=== PATIENT | female | born 1990 | race Caucasian/White ===

== ENCOUNTER 2020-08-02 09:42 | Emergency (ER) | payer SELFPAY ==
--- OUTSIDE RECORDS SUMMARY | 2020-08-02 10:27 | XMS REPORT | Continuity of Care Document ---
:1990 Author Organization [facility] t Address [address] [place] [address] Care Team Providers Name Role Phone DR SONAL Primary Care Physician MELISSA Attending Clinician Unavailable LIN JOHNSON Attending Clinician Unavailable EDITH Attending Clinician Unavailable MELISSA Attending Clinician Unavailable DR Aurea COREA Attending Clinician Unavailable Brandon PIERCE Attending Clinician Unavailable Aurea SR Attending Clinician Unavailable MELISSA Admitting Clinician Unavailable LIN JOHNSON Admitting Clinician Unavailable EDITH Admitting Clinician Unavailable STAN Admitting Clinician Unavailable Diego COREA Admitting Clinician Unavailable Jens RODRIGUEZ Admitting Clinician Unavailable Aurea SR Admitting Clinician Unavailable Problems Condition Condition Condition Status Onset Resolution Last Treating Co mments Source Name Details Category Date Date Treatment Clinician Date Dental Dental Problem Active [facility] abscess [facility]-10 [facility] 00 l (LUF/LI V/SA) Gastroesop Gastroesop Problem Active [facility] hageal hageal 8-23 [facility] - reflux reflux 00:00: Memoria disease disease 00 l (LUF/LI V/SA) Acute Acute Problem Active 2017-[address] [facility] infective infective 2-13 [facility] - bronchitis bronchitis 00:00: Me moria 00 l (LUF/LI V/SA) Palpitatio Palpitatio Problem Active [facility] ns ns 9-12 [facility] - 00:[facility]: Memoria 00 l (LUF/LI V/SA) Laceration Laceration Problem Complet [facility] - injury - injury ed 02-16 [facility] - 00:[facility]: Memoria 00 l (LUF/LI V/SA) repeat repeat Problem Active [facility] caesarean caesarean 4-23 [facility] - section, section, 00:00: Memori a bilateral bilateral 00 l tubal tubal (LUF/LI ligation ligation V/SA) 39wks 39wks Problem Active [facility] , , 4-23 Satya kes - previous previous 00:00: Memori a c/sx 2 , c/sx 2 , 00 l undesired undesired (LUF /LI fertility fertility V/SA ) 38 wks 38 wks Problem Active [facility] , , 4-18 Satya kes - uterine uterine 00:00: Memoria contractio contractio 00 l ns, ns, (LUF/LI previous previous V/SA) caesarean caesarean section section Otitis Otitis Problem Active [facility] externa externa 2-09 [facility] - 00:[facility]: Memoria 00 l (LUF/LI V/SA) Otitis Otitis Problem Active [facility] media media 2-09 [facility] - 00:00: Memoria 00 l (LUF/LI V/SA) 25 weeks 25 weeks Problem Active [facility] , 1- Luke [facility] - febrile febrile 00:00: Memoria illness,le illness,le 00 l ucocytosis ucocytosis (L UF/LI V/SA) Influenza Influenza Problem Active 2016-[address] [facility] [address] 2-02 [facility] - 00:00: Memoria 00 l (LUF/LI V/SA) Problem Active 2016-[address] [facility] 0-06 [facility] - 00:00: Memoria 00 l (LUF/LI V/SA) Syncope Syncope Problem Active 2016-[address] [facility] [address] 0-06 [facility] - 00:00: Memoria 00 l (LUF/LI V/SA) Laceration Laceration Problem Active [facility] - injury - injury 6-07 [facility] - 00:[facility]: Memoria 00 l (LUF/LI V/SA) Streptococ Streptococ Problem Active [facility] lavinia sore lavinia sore 2-20 [facility] - throat throat 00:00: Memoria 00 l (LUF/LI V/SA) 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 [facility] Hepatitis Hepatitis Problem Active [facility] C antibody C antibody Satya kes - positive positive Memori a in blood in blood l [facility] Screening, Screening, Problem Active [facility] , , Satya kes - for for Daniel silvino anatomic anatomic l survey survey [facility] Previous Previous Problem [facility] complicati complicati l ng ng [facility] , , en t antepartum antepartum Cl inics condition condition or or complicati complicati on on Infection Infection Problem Active [facility] of left of left [facility] - ear ear 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 Other iron Other iron Problem Active [facility] deficiency deficiency Satya kes - anemia anemia [facility] 27 weeks 27 weeks Problem Active [facility] gestation gestation Luke s - of of Memoria l [facility] 20 weeks 20 weeks Problem Active [facility] gestation gestation Luke [facility] - of of Memoria l [facility] Negative Negative Problem Active [facility] Complete Complete [facility] Active [facility] spontaneou spontaneou Satya kes - s s Me moria 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 Memori a l (LUF/LI V/SA) Atrial Atrial Problem Active [facility] septal septal [facility] - defect defect Memoria l (LUF/LI V/SA) Back Back Problem Active [facility] problem problem [facility] - Memoria l (LUF/LI V/SA) Congenital Congenital Problem Active [facility] heart heart [facility] - disease disease Memoria l (LUF/LI V/SA) Asthma Asthma Problem Active [facility] - Memoria l (LUF/LI V/SA) Bronchitis Bronchitis Problem Active [facility] - Memoria l (LUF/LI V/SA) Disorder Disorder Problem Active [facility] of the of the [facility] - peripheral peripheral Me moria nervous nervous l system system (LUF/LI V/SA) Allergies, Adverse Reactions, Alerts Allergy Allergy Status Severity Reaction(s) Onset Inactive Treating Comm ents Source Name Type Date Date Clinician vancomyc Adverse Active rash [facility] in Reaction [facility] Medications Ordered Filled Start Stop Current Ordering Indication Dosage Frequency Signature Comments Components Source Medication Medication Date Date Medication? Clinician (SIG) Name Name Neomycin-Po Neomycin-Po Yes Caron [address] [address] lymyxin-HC lymyxin-HC 1-31 Garnepudi into [facility] - 00:00: affected [facility]oria 00 ear l [facility] Select-OB Select-OB 2016-09 Yes Caron [address] [facility] 2-15 Garnepudi [facility] - 00:00: Memoria 00 l [facility] Multi Multi Yes Caron [address] [facility] Vitamin Vitamin Garnepudi Luke [facility] - [facility]oria l [facility] Tylenol # 3 Tylenol # 3 Yes Caron not [facility] Garnepudi defined [facility] Benzocaine Benzocaine Yes 15mL 4xD to [facility] 100 MG/ML 100 MG/ML affected L ukes - Mucous Mucous mucosal Memoria Membrane Membrane area 4 l Topical Topical times per (LUF /LI Solution Solution day as V/SA) needed. (as needed for mouth pain; swish and spit) Clindamycin Clindamycin Yes 450mg 3xD orally [address] [facility] Oral Oral times per [facility] - day (For 3 Memoria days) l (LUF/LI V/SA) Immunizations Ordered Immunization Filled Immunization Date Status Commen ts Source Name Name measles, mumps and measles, mumps and 2018-01-[address] [facility] - rubella virus rubella virus 11:54:00 [facility] vaccine vaccine (LUF/DAVE/SA) diphtheria, tetanus diphtheria, tetanus 2018-01-12 Completed [facility] - toxoids and toxoids and 17:19:01 [facility] acellular pertussis acellular pertussis (LUF/DAVE/SA) vaccine vaccine influenza virus influenza virus 2013-09-24 Completed [facility] - vaccine, NOS vaccine, NOS 08:51:21 [facility] (LUF/DAVE/SA) diphtheria, tetanus diphtheria, tetanus 2013-09-23 Completed [facility] - toxoids and toxoids and 16:50:57 [facility] acellular pertussis acellular pertussis (F/DAVE/SA) vaccine vaccine Vital Signs Vital Name Observation Time Observation Value Comments Source Body Temperature 2020-06-10 08:55:00 97.3 [degF] [facility] (F/DAVE/SA) Pulse Rate 2020-06-10 08:55:00 78 /min [facility] (LUF/DAVE/SA) Respiratory Rate 2020-06-10 08:55:00 18 /min [facility] (F/DAVE/SA) O2% BldC Oximetry 2020-06-10 08:55:00 99 % [facility] (F/DAVE/SA) BP Systolic 2020-06-10 08:55:00 119 mm[Hg] [facility] (F/DAVE/SA) BP Diastolic 2020-06-10 08:55:00 82 mm[Hg] [facility] (F/DAVE/SA) Height 2020-06-10 08:34:00 60 [in_i] [facility] (F/DAVE/SA) Weight 2020-06-10 08:34:00 110 [lb_av] [facility] (F/DAVE/SA) BMI (Body Mass Index) 2020-06-10 08:34:00 21.5 kg/m2 [facility] (F/DAVE/SA) Body Temperature 2018-11-24 14:37:00 98 F [facility] (LUF/DAVE/SA) Pulse Rate 2018-11-24 14:37:00 96 /min [facility] (F/DAVE/SA) Respiratory Rate 2018-11-24 14:37:00 18 /min [facility] (LUF/DAVE/SA) O2% BldC Oximetry 2018-11-24 14:37:00 99 % [facility] (LUF/DAVE/SA) BP Systolic 2018-11-24 14:37:00 146 mm[Hg] [facility] (LUF/DAVE/SA) BP Diastolic 2018-11-24 14:37:00 96 mm[Hg] [facility] (LUF/DAVE/SA) Height 2018-11-24 14:37:00 59 in [facility] (LUF/DAVE/SA) Weight Measured 2018-11-24 14:37:00 103.61 lbs [facility] (LUF/DAVE/SA) BMI (Body Mass Index) 2018-11-24 14:37:00 21.1 kg/m2 [facility] (LUF/DAVE/SA) Body Temperature 2018-11-23 17:52:00 98.9 F [facility] (LUF/DAVE/SA) Pulse Rate 2018-11-23 17:52:00 78 /min [facility] (LUF/DAVE/SA) Respiratory Rate 2018-11-23 17:52:00 20 /min [facility] (LUF/DAVE/SA) O2% BldC Oximetry 2018-11-23 17:52:00 99 % [facility] (LUF/DAVE/SA) BP Systolic 2018-11-23 17:52:00 156 mm[Hg] [facility] (LUF/DAVE/SA) BP Diastolic 2018-11-23 17:52:00 87 mm[Hg] [facility] (LUF/DAVE/SA) Height 2018-11-23 17:52:00 59 in [facility] (LUF/DAVE/SA) Weight Measured 2018-11-23 17:52:00 101.41 lbs [facility] Sandy [facility] (LUF/DAVE/SA) BMI (Body Mass Index) 2018-11-23 17:52:00 20.7 kg/m2 [facility] (LUF/DAVE/SA) Body Temperature 2018-09-03 16:26:00 99.4 F [facility] (LUF/DAVE/SA) Pulse Rate 2018-09-03 16:26:00 85 /min [facility] (LUF/DAVE/SA) Respiratory Rate 2018-09-03 16:26:00 18 /min [facility] (LUF/DAVE/SA) O2% BldC Oximetry 2018-09-03 16:26:00 98 % [facility] (LUF/DAVE/SA) BP Systolic 2018-09-03 16:26:00 109 mm[Hg] [facility] (LUF/DAVE/SA) BP Diastolic 2018-09-03 16:26:00 64 mm[Hg] [facility] (LUF/DAVE/SA) Height 2018-09-03 16:26:00 60 in [facility] (LUF/DAVE/SA) Weight Measured 2018-09-03 16:26:00 119.99 lbs [facility] (LUF/DAVE/SA) BMI (Body Mass Index) 2018-09-03 16:26:00 23.5 kg/m2 [facility] (LUF/DAVE/SA) Respiratory Rate 2018-06-03 02:32:00 18 /min [facility] (LUF/DAVE/SA) O2% BldC Oximetry 2018-06-03 02:32:00 99 % [facility] (LUF/DAVE/SA) BP Systolic 2018-06-03 02:32:00 160 mm[Hg] [facility] (LUF/DAVE/SA) BP Diastolic 2018-06-03 02:32:00 97 mm[Hg] [facility] (LUF/DAVE/SA) Height 2018-06-03 02:29:00 60 in [facility] (LUF/DAVE/SA) Weight Measured 2018-06-03 02:29:00 110.23 lbs [facility] (LUF/DAVE/SA) BMI (Body Mass Index) 2018-06-03 02:29:00 21.6 [facility] (LUF/DAVE/SA) Respiratory Rate 2018-01-16 08:30:00 19 /min [facility] (LUF/DAVE/SA) O2% BldC Oximetry 2018-01-16 08:30:00 97 % [facility] (LUF/DAVE/SA) Body Temperature 2018-01-16 08:15:00 98 F [facility] (LUF/DAVE/SA) BP Systolic 2018-01-16 08:15:00 122 mm[Hg] [facility] (LUF/DAVE/SA) BP Diastolic 2018-01-16 08:15:00 70 mm[Hg] [facility] (LUF/DAVE/SA) Height 2018-01-12 10:07:00 60 in [facility] (LUF/DAVE/SA) Weight Measured 2018-01-12 10:07:00 130.27 lbs [facility] (LUF/DAVE/SA) BMI (Body Mass Index) 2018-01-12 10:07:00 25.5 [facility] (LUF/DAVE/SA) Body Temperature 2018-01-08 08:49:00 97.8 F [facility] (LUF/DAVE/SA) Respiratory Rate 2018-01-08 08:49:00 16 /min [facility] (LUF/DAVE/SA) BP Systolic 2018-01-08 08:49:00 113 mm[Hg] [facility] (LUF/DAVE/SA) BP Diastolic 2018-01-08 08:49:00 65 mm[Hg] [facility] (LUF/DAVE/SA) Height 2018-01-07 18:52:00 60 in [facility] (LUF/DAVE/SA) Weight Measured 2018-01-07 18:52:00 124.78 lbs BELINDA [facility] (LUF/DAVE/SA) BMI (Body Mass Index) 2018-01-07 18:52:00 24.4 [facility] (LUF/DAVE/SA) Body Temperature 2017-12-24 23:36:00 98 F [facility] (LUF/DAVE/SA) Respiratory Rate 2017-12-24 23:36:00 20 /min [facility] (LUF/DAVE/SA) O2% BldC Oximetry 2017-12-24 23:36:00 99 % [facility] (LUF/DAVE/SA) BP Systolic 2017-12-24 23:36:00 145 mm[Hg] [facility] (LUF/DAVE/SA) BP Diastolic 2017-12-24 23:36:00 62 mm[Hg] [facility] (LUF/DAVE/SA) Height 2017-12-24 23:36:00 60 in [facility] (LUF/DAVE/SA) Weight Measured 2017-12-24 23:36:00 125 lbs [facility] (LUF/DAVE/SA) BMI (Body Mass Index) 2017-12-24 23:36:00 24.5 [facility] (LUF/DAVE/SA) Body Temperature 2017-10-31 00:14:00 99.4 F [facility] (LUF/DAVE/SA) Respiratory Rate 2017-10-31 00:14:00 22 /min [facility] (LUF/DAVE/SA) Height 2017-10-31 00:14:00 60 in [facility] (LUF/DAVE/SA) Weight Measured 2017-10-31 00:14:00 120 lbs [facility] (LUF/DAVE/SA) BMI (Body Mass Index) 2017-10-31 00:14:00 23.5 [facility] (LUF/DAVE/SA) O2% BldC Oximetry 2017-10-31 00:07:00 98 % [facility] (LUF/DAVE/SA) BP Systolic 2017-10-31 00:06:00 132 mm[Hg] [facility] (LUF/DAVE/SA) BP Diastolic 2017-10-31 00:06:00 66 mm[Hg] [facility] (LUF/DAVE/SA) Body Temperature 2017-10-16 10:00:00 98.1 F [facility] (LUF/DAVE/SA) Respiratory Rate 2017-10-16 10:00:00 18 /min [facility] (LUF/DAVE/SA) O2% BldC Oximetry 2017-10-16 10:00:00 98 % [facility] (LUF/DAVE/SA) BP Systolic 2017-10-16 10:00:00 100 mm[Hg] [facility] (LUF/DAVE/SA) BP Diastolic 2017-10-16 10:00:00 53 mm[Hg] [facility] (LUF/DAVE/SA) Height 2017-10-15 19:35:00 60 in [facility] (LUF/DAVE/SA) Weight Measured 2017-10-15 19:35:00 118.16 lbs [facility] (LUF/DAVE/SA) BMI (Body Mass Index) 2017-10-15 19:35:00 23.1 [facility] (LUF/DAVE/SA) Body Temperature 2017-08-23 15:56:00 98 F [facility] (LUF/DAVE/SA) Respiratory Rate 2017-08-23 15:56:00 17 /min [facility] (LUF/DAVE/SA) O2% BldC Oximetry 2017-08-23 15:56:00 100 % [facility] (LUF/DAVE/SA) BP Systolic 2017-08-23 15:56:00 120 mm[Hg] [facility] (LUF/DAVE/SA) BP Diastolic 2017-08-23 15:56:00 66 mm[Hg] [facility] (LUF/DAVE/SA) Height 2017-08-23 15:56:00 60 in [facility] (LUF/DAVE/SA) Weight Measured 2017-08-23 15:56:00 109.98 lbs [facility] (LUF/DAVE/SA) BMI (Body Mass Index) 2017-08-23 15:56:00 21.5 [facility] (LUF/DAVE/SA) Procedures Procedure Date / Time Performed Performing Clinician Rocio HARRINGTON RED BLD CLL 2018-01-13 00:00:00 BELINDA Keith PERIPH VN PC [facility] (LUF/DAVE/SA) EXCISION BILAT 2018-01-12 00:00:00 [facility] T[facility] (LUF/DAVE/SA) EXTRACTION POC LOW 2018-01-12 00:00:00 [facility] - CERVICAL OPEN [facility] (LUF/DAVE/SA) PULMONARY VALVE [facility] REPLACEMENT [facility] (LUF/DAVE/SA) [facility] (LUF/DAVE/SA) LEFT NECK ABSCESS I &D [facility] (LUF/DAVE/SA) Encounters Start End Encounter Admission Attending Care Care Encounter Source Date/Time Date/Time Type Type Clinicians Facility Department ID 2020-07-24 2020-07-24 Inpatient [facility] [id number] 11:03:00 23:59:00 MITCHEL Henderson ukes - N, [address], ([place] [address] 2020-06-10 2020-06-10 PERIAPICAL [facility] [id number] 08:18:00 09:04:00 ABSCESS MITCHEL Henderson ukes - WITHOUT N, [address], ([place]F/[place] [address] 2018-11-24 2018-11-24 AGGRESS TORRES, GIMENEZ [facility] [id number] 14:33:00 14:50:00 PERIODONTI MITCHEL MODI [facility] - TIS LOCAL N, [address], ([place] [address] 2018-11-23 2018-11-23 JAW PAIN LAUREN ARCINIEGA [facility] [id number] 17:39:00 20:00:00 MITCHEL MODI L ukes - N, [address], (LUF/[place] [address] 2018-09-03 2018-09-03 ACUTE 1 STAN, [facility] [id number] [facility] 16:04:00 17:54:00 BRONCHITIS KELLY MITCHEL Keith - UNSPECIFIE N, [address], ([place] [address] 2018-06-03 2018-06-03 LAUREN GOMEZ [facility] [id number] 02:14:00 02:52:00 NS MITCHEL Henderson ukes - N, [address], (LUF/[place] [address] 2018-02-02 2018-02-02 Outpatient [facility] [id number] 14:00:00 14:00:00 Clinics [facility] oria n [facility] 2018-01-12 2018-01-16 MAT CARE O NAHOMY, [facility] [id number] 09:14:00 14:15:00 UNS TYPE CARON GRULLON [facility] - SCAR PREV N, [address], ([place] [address] 2018-01-12 2018-01-12 Inpatient [facility] [place] [id number] 08:23:00 23:59:00 CARON Villar [facility], [address] (LUF/[address], V/SA) [place] [address] 2018-01-07 2018-01-08 [facility] [id number] 17:54:00 09:25:00 LABOR CARON Henderson ukes - AT/AFTR 37 N, [address], ([place] [address] 2018-01-07 2018-01-07 Outpatient [facility] [id number] 14:00:00 14:00:00 Clinics [facility] oria n [facility] Out dioni [facility] ent [facility] 2018-01-06 2018-01-06 [facility] [id number] 10:59:00 23:59:00 OTH PA FTL [facility] N, [address], ([place] [address] 2017-12-30 2017-12-30 Outpatient [facility] [id number] 14:00:00 14:00:00 Clinics Clinics [facility] oria n [facility] 2017-12-24 2017-12-25 PROC&TX FRANCISCO CHATMAN [facility] [id number] 23:21:00 02:00:00 NOT MITCHEL Henderson ukes - CARRIED N, [address] [place], ([place] [address] 2017-12-23 2017-12-23 Outpatient [facility] [id number] 14:00:00 14:00:00 Clinics [facility] oria n [facility] Out dioni [facility] ent Center [facility] 2017-10-30 2017-10-31 OTH DZ Willow STALLWORTH, [facility] [id number] 23:58:00 10:54:00 COMP PREG BHAVESH MODI [facility] N, [address], ([place] [address] 2017-10-14 2017-10-16 OTH DZ O NAHOMY, [facility] [id number] 18:21:00 13:15:00 COMP PREG CARON MODI [facility] N, [address], ([place] [address] 2017-09-08 2017-09-08 ENCTR OTH 3 NAHOMY [facility] [id number] 13:41:00 23:59:00 SPEC CARON MODI L ukes - N, [address], ([place] [address] 2017-08-23 2017-08-23 OTH VIRAL JANIE, SULMA [facility] [id number] 15:47:00 17:00:00 DZ COMP [place]IV[place] MODI L ukes - PREG N, [address] [facility] [address], ([place]F/[place] [address] Results Test Description Test Time Test Comments Results Result Sourc e Comments XR CHEST 2 PA 2019-09-24 PA and lateral LATERAL 12:06:29 chest:History: Productive coughCompared to 05/14/19. The lungs are clear. The cardiomediastinal silhouette iswithin normal limits. 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 There are nosignificant bony abnormalities.Impressio n: No active cardiopulmonary disease.This final report was electronically signed by Dr Power Martino MD 09/24/201912:00 PMDictated By: POWER MARTINODate: 09/24/2019 12:00 FLU SCREEN 2019-09-24 11:32:00 Test Item Value Reference Range Interpretation Comme nts Flu A Screen (test code = Negative Negative N EF FECTIVE 09/10/2013 - A method FLUA) change has occu rred. A molecular method for Flu testing will replace the current met hod. Both Flu A and Flu B will be t ested and results will continue t o be listed as "Negative or Po sitive". While this method is more specific in the detection of obdulio th strains, confirmatory te sting is available upon request. ldh Flu B Screen (test code = Negative Negative N EF FECTIVE 09/10/2013 - A method FLUB) change has occu rred. A molecular method for Flu testing will replace the current met hod. Both Flu A and Flu B will be t ested and results will continue t o be listed as "Negative or Po sitive". While this method is more specific in the detection of obdulio th strains, confirmatory te sting is available upon request. ldh URINALYSIS WITH [id number] 11:31:00 Test Item Value Reference Range Interpretation Comments Color (test code = Lt. Yellow UCOLR) Clarity (test code = Clear UCLAR) Glucose (test code = NEGATIVE NEGATIVE N UGLUC) Bilirubin (test code = NEGATIVE NEGATIVE N UBILI) Ketones (test code = NEGATIVE NEGATIVE N UKET) Specific [place] (test 1.020 1.005-1.030 A code = USPGR) Blood (test code = UBLD) NEGATIVE NEGATIVE N PH (test code = UPH) 7.0 4.5-8.0 A Protein (test code = NEGATIVE NEGATIVE N UPROT) Urobilinogen (test code 0.2 >0.2 N = U UROB) Nitrite (test code = NEGATIVE NEGATIVE N UNITR) Leukocyte Esterase (test NEGATIVE NEGATIVE N code = ULEUK) WBC (test code = WBCUR) 0-3 0-1 0-5 A RBC (test code = RBCUR) 0-1 0-5 A Epithial Cells (test 5-10 0-10 A code = U EPI) Mucous (test code = Trace None Seen A UMUC) Bacteria (test code = Trace None Seen,Trace N UBACT) Crystals Urine (test Trace Amorphous None Seen A code = URCRYS) Sediment TEST, Urine [id number] 11:27:00 Test Item Value Reference Range Interpretation Comments (Urine) (test code = Negative PREGU) XR FOREARM 2 [id number] 17:42:26Procedure: 2 view left forearmOrder Date: 06/07/2019 4:55 PMOrdering Provider: MR ALIS AGUILLONlinical Indication: Left forearm pain after traumaComparison: NoneFINDINGS:There is no fracture.Art icular surfaces at the wrist and elbow are intact.There are no lytic or sclerotic lesions identified.There is no radiopaque foreign body.There is no subcutaneous gas present.IMPRESSION:1. Negative examof the left forearm.This final report was electronically signed by Dr Luis Alfredo Valdivia MD 06/07/20195:35 PMDictated By: LUIS ALFREDO VALDIVIADate: 06/07/2019 17:35STAT LAB CBC WITH AUTO [id number] 22:09:00 Test Item Value Reference Range Interpretation Comments WBC (test code = 5.28 10\\S\\3/ul 4.80-10.80 WBC) RBC (test code = 4.21 10\\S\\6/ul 4.20-5.40 RBC) Hemoglobin (test 11.6 gm/dl 12.0-14.0 L code = HGB) Hematocrit (test 36.3 % 37.0-47.0 L code = HCT) MCV (test code = 86.2 fL 81.0-99.0 MCV) MCH (test code = 27.6 pg 27.0-31.0 MCH) MCHC (test code = 32.0 gm/dl 33.0-37.0 L MCHC) Platelet (test code 220 10\\S\\3/ul 130-400 = PLT) RDW (test code = 13.5 % 11.5-14.5 RDWVC) MPV (test code = 10.1 fL 7.4-10.4 A MPV) NE% (test code = 49.2 % 42.0-75.0 NE) LY% (test code = 29.9 % 13.0-42.0 LY) MO% (test code = 19.5 % 4.0-14.0 H MO) EO% (test code = 0.8 % 1.0-3.0 L EO) BA% (test code = 0.4 % 1.0-3.0 L BA) IG% (test code = 0.2 % 0.0-0.4 IG%) Neutrophils (test 58 10\\S\\3/ul 42-75 No previou s value code = NEUTR) was reported. A value of 58 was entered by [id number] on 05/14/2019 22:0 9 Lymphocytes (test 25 % 13-42 No previou s value code = LYMPH) was reported. A value of 25 was entered by [id number] on 05/14/2019 22:0 9 Monocytes (test 16 % 4-14 H No previous value code = MONOS) was reported. A value of 16 was entered by [id number] on 05/14/2019 22:0 9 Eosinophils (test 1 % 1-3 No previou s value code = EOS) was reported. A value of 1 was entered by [id number] on 05/14/2019 22:0 9 Normal Morphology Normal WBC RBC Normal RBC \\T\\ N No pre vious value (test code = NRCM) and Platelet WBC was repor sangeeta. A Morphology Morphology,Normal value of N ormal WBC RBC and WBC RBC and Platelet Platelet Morphology Morphology was entered by [id number] on 05/14/2019 22:0 9 TYPE & [id number] 21:58:00 Test Item Value Reference Range Interpretation Comments ABO Blood Type (test code = ABO) B Rh (test code = RH) Positive Antibody Screen (test code = ABSCR) Negative Negative N ARMBAND# (test code = ARMBAND) GK [id number] PT AND [id number] 21:39:00 Test Item Value Reference Range Interpretation Comments Protime (test code 10.6 seconds 9.5-12.1 = PT) INR (test code = 1.0 0.9-1.1 INR results are INR) intended ONLY t o monitor Oral Anticoagulant t herapy in stablized pa tients. The INR Therape utic Range is 2.0 - 3.0 Patients with a mechanical hear t, the INR Range is 2. 5 - 3.5 HEPATIC FUNCTION PANEL (LIVER)2019-05-14 21:35:00 Test Item Value Reference Range Interpretation Comments T Protein (test code = TP) 8.1 gm/dl 6.4-8.2 Albumin (test code = ALB) 3.8 gm/dl 3.4-5.0 AST (SGOT) (test code = AST) 16 U/L 15-37 ALT (SGPT) (test code = ALT) 19 U/L 13-61 Alkaline Phos (test code = ALKP) 74 U/L 45-117 Total Bilirubin (test code = TBIL) 0.2 mg/dl 0.2-1.0 Direct Bilirubin (test code = <0.1 mg/dl 0.0-0.3 N DBIL) Indirect Bilirubin (test code = 0.2 mg/dl 0.0-1.1 IBIL) [id number] 21:35:00 Test Item Value Reference Range Interpretation Comments Lipase (test code = LIPA) 130 U/L 73-393 XR CHEST AP/PA 1 [id number] 21:17:50Procedure: XR CHEST AP/PA 1 VIEW Exam Date: 05/14/2019 8:40 PMOrdering Provider: TRAE Waltersinical Indication: [id number]: Chest painComparison: Chest x-ray October 14, 2017.Findings:Mediastinal shadows are normal in size. No consolidation, pneumothorax orsizable effusion. No acute bony findings. Imaged upper abdomen normal.Stable ASD closure device.Impression: No acute chest process.This final report was electronically signed by Dr Shad Torres DO 05/14/20199:11 PMDictated By: Bora TORRES: 05/14/2019 21:11STAT LAB [id number] 21:17:00 Test Item Value Reference Range Interpretation Comments Troponin-I (test 0.00 ng/ml 0.00-0.08 The 99th Pe rcentile URL is code = TROP) 0.08 ng/mL for the [place] iStat Troponin I. The Joint Society of Cardiology/Amer ican College of Card iology (ESC/ACC) and [facility] Academy of Clin ical Biochemistry St andards of Laboratory Prac tices (NACB) recommen ds that the diagnosis of AM I includes the presence of clinical history suggest renny of Acute Coronary Syndrome (ACS) and a max imum concentration o f cardiac troponin exceed ing the 99th percentile of a normal referenc e population [upp er reference limit (URL)] on at least one oc casion during the firs t 24 hours after the clini lavinia event. STAT LAB CHEM [id number] 21:14:00 Test Item Value Reference Range Interpretation Comments Sodium (test code = NA) 139 mmol/l 138-146 Potassium (test code = K) 3.7 mmol/l 3.5-4.9 Chloride (test code = CL) 105 mmol/l 98-109 IONIZED CALCIUM (test code = ICA) 1.26 1.12-1.32 A CO2 (test code = CO2) 23 mmol/l 24-29 L Glucose (test code = GLU) 91 mg/dl 70-105 BUN (test code = BUN) 16 mg/dl 6-17 Creatinine (test code = CREA) 0.7 mg/dl 0.6-1.3 STAT LAB , [id number] 21:09:00 Test Item Value Reference Range Interpretation Comments (Urine) (test code = Negative PREGU) ONLY AVAILABLE 8A-12MNSTAT LAB URINALYSIS WITHOUT [id number] 21:09:00 Test Item Value Reference Range Interpretation Comments Color (test code = UCOLR) Yellow Lt. Yellow A Clarity (test code = UCLAR) Slightly Cloudy Glucose (test code = UGLUC) Negative Negative N Bilirubin (test code = UBILI) Negative Negative N Ketones (test code = UKET) Negative Negative N Specific [place] (test code = >=1.030 1.005-1.030 A USPGR) Blood (test code = UBLD) Negative Negative N PH (test code = UPH) 6.0 4.5-8.0 A Protein (test code = UPROT) Negative Negative N Urobilinogen (test code = U 0.2 >0.2 N UROB) Nitrite (test code = UNITR) Negative Negative N Leukocyte Esterase (test code Negative Negative N = ULEUK) XR CHEST AP/PA 1 [id number] 17:30:17EXAMINATION: XR CHEST AP/PA 1 VIEWINDICATION: [id number]: [id number]: [id number]: Chest radiograph October 14, 2017FINDINGS:TUBES and LINES: ASD closure device remains stable in position.LUNGS: Lungs are well inflated. Lungs are clear. There is no evidence ofpneumonia or pulmonary edema.PLEURA: No pleural effusion or pneumothorax.HEART AND MEDIASTINUM: The cardiomediastinalsilhouette is unremarkable.BONES AND SOFT TISSUES: No acute osseous lesion. Soft tissues areunremarkable.UPPER ABDOMEN: No free air under the diaphragm.IMPRESSION:No acute thoracic abnormality.This final report was electronically signed by Dr Shonda Tirado MD09/03/2018 5:24 PMDictated By:KARINA MOYAADate: 09/03/2018 17:24CBC WITH MANUAL [id number] 06:23:00 Test Item Value Reference Range Interpretation Comments WBC (test code = WBC) 12.26 10\\S\\3/ul 4.80-10.80 H RBC (test code = RBC) 2.90 10\\S\\6/ul 4.20-5.40 L Hemoglobin (test code = HGB) 8.7 gm/dl 12.0-14.0 L Hematocrit (test code = HCT) 25.9 % 37.0-47.0 L MCV (test code = MCV) 89.3 fL 81.0-99.0 MCH (test code = MCH) 30.0 pg 27.0-31.0 MCHC (test code = MCHC) 33.6 gm/dl 33.0-37.0 RDW (test code = RDWVC) 15.9 % 11.5-14.5 H Platelet (test code = PLT) 119 10\\S\\3/ul 130-400 L MPV (test code = MPV) 10.4 fL 7.4-10.4 A Neutrophils (test code = 75 % 42-75 NEUTR) Lymphocytes (test code = 19 % 13-42 LYMPH) Monocytes (test code = 6 % 4-14 MONOS) RBC Morphology (test code = Anisocytosis SLT RBCMOR) HISTOLOGY [id number] 11:34:00 [address], [place] [address]Tjjyn: [phone] ILPV #: [id number] [employer] Equipment Tender: Kvng Moffett M.D.Surgical Pathology Consultation ReportPatient Name: AMPARO ADAMS Case #: [id number] Med. Rec. #:[id number]: DAVE-DAVE Surgery Date: 01/12/2018 : 1990 (Age: 27) Received: 01/13/2018 Gender: F Copy to : Reported: 01/14/2018Physician(s): Caron Corea Specimen(s) ReceivedA: Placenta and cord B: Fallopian tube, partial right C: Fallopian tube, partial left Final Pathologic DiagnosisA. Placenta and cord, products of conception:- MATURE PLACENTA AND CORD.B. Right and left fallopian tubes, segmental resections forsterilization:- FULL CROSS SECTIONS OF RIGHT AND LEFT FALLOPIAN TUBES. Electronically Signed Out ka/01/14/2018 Kvng Moffett MD, Board Certifiedin Anatomic Pathology Clinical HistoryTerm, intrauterine , desires sterilization, viable baby born [id number].Gross DescriptionSpecimen A is labeled placenta and cord. A 436 gram disc-shaped placentameasuring 17 x 16 x up to 3 cm is received. The centrally placedumbilicalcord measures 46 cm in length with a diameter up to 1.5 cm. The cord isover-coiled. No knots are grossly identified. Serially sectioningthrough thecord reveals three vessels. The membranes have a reddish- blueappearance. The maternal cotyledons are intact and serially sectioningrevealsred spongy placental tissue. Section Code: A1 membranes andfetalportion of the umbilical cord; A2 placenta; A3 placenta and mater nalportionof the umbilical cord.Specimen B is labeled right fallopian tube. A segment of fallopian tubewhichdoes not contain any fimbriae is identified. This segment of tubemeasures 1.5cm in length with a diameter up to 0.6 cm. The tube is seriallysectioned andsubmitted in toto in cassette B.Specimen C is labeled left fallopian tube. A segment of fallopian tubewhichdoes not contain any fimbriae is identified. This segment of tubemeasures 1.8cm in length with a diameter up to 0.8 cm. Serially sectioning throughthetube reveals no gross pathologic changes. The entire tube is submittedincalon Rushka/01/13/2018 Kvng Moffett MD, Board Certified in Anatomic Pathology Microscopic DescriptionMicroscopic examination of specimen A labeled placenta reveals numerousthirdtrimester chorionic villi with syncytial knots. There are areas ofintervillous fibrin deposition as well as calcifications. No villitis iss een.The umbilical cord is composed of two arteries and a vein and there isnoinflammation present. The membranes are histologicallyunremarkable andshow no evidence of inflammation. Microscopic examination of the right and left fallopian tubes revealsfullcross sections of histologically unremarkable fallopian tube mucosa andwall. Billing Fee Code(s): A; 16094M; 28022G; 66650NQN WITH MANUAL [id number] 03:12:00 Test Item Value Reference Range Interpretation Comments WBC (test code = 15.87 4.80-10.80 H WBC) 10\\S\\3/ul RBC (test code = 3.11 10\\S\\6/ul 4.20-5.40 L RBC) Hemoglobin (test 9.5 gm/dl 12.0-14.0 L code = HGB) Hematocrit (test 27.6 % 37.0-47.0 L code = HCT) MCV (test code = 88.7 fL 81.0-99.0 MCV) MCH (test code = 30.5 pg 27.0-31.0 MCH) MCHC (test code = 34.4 gm/dl 33.0-37.0 MCHC) RDW (test code = 15.7 % 11.5-14.5 H RDWVC) Platelet (test code 113 10\\S\\3/ul 130-400 L = PLT) MPV (test code = 10.2 fL 7.4-10.4 A "NOT MEASUR ED" MPV) RESULTS ARE DISPLAYED WHEN THE INSTRUMENT HAS A SUPPRESSED OR UNREPORTABLE RE SULT. THIS WILL MOST OFTEN HAPPEN WI TH THE MPV WHEN TH ERE IS AN ABNORMAL PLATELET DISTRIBUTION DU E TO A CRITICAL LOW VALUE OR PLATELET CLUMPING. THE RDW MAY BE SUPPRESS ED IF THERE ARE MULTI PLE PEAKS PRESENT O N THE RBC HISTOGRAM. IN THIS CASE, A ABBE VELEZ REVIEW OF THE S LIDE WILL BE PERFORM ED, AND RBC MORPHOL OGY WILL BE NOTED O N THE REPORT. Neutrophils (test 77 10\\S\\3/ul 42-75 H code = NEUTR) Lymphocytes (test 15 % 13-42 code = LYMPH) Monocytes (test code 8 % 4-14 = MONOS) RBC, [id number] 22:08:00 Test Item Value Reference Range Interpretation Comments RBC Unit (test code Released for Transfusion = RBCUNIT) RBC, [id number] 20:12:00 Test Item Value Reference Range Interpretation Comments RBC Unit (test code Released for Transfusion = RBCUNIT) CBC WITH AUTO [id number] 18:08:00 Test Item Value Reference Range Interpretation Comments WBC (test code = WBC) 18.85 4.80-10.80 H 10\\S\\3/ul RBC (test code = RBC) 2.61 10\\S\\6/ul 4.20-5.40 L Hemoglobin (test code 7.9 gm/dl 12.0-14.0 LL = HGB) Hematocrit (test code 23.5 % 37.0-47.0 LL = HCT) MCV (test code = MCV) 90.0 fL 81.0-99.0 MCH (test code = MCH) 30.3 pg 27.0-31.0 MCHC (test code = 33.6 gm/dl 33.0-37.0 MCHC) RDW (test code = 16.4 % 11.5-14.5 H RDWVC) Platelet (test code = 117 10\\S\\3/ul 130-400 L PLT) MPV (test code = MPV) 10.0 fL 7.4-10.4 A NE% (test code = NE) 81.5 % 42.0-75.0 H LY% (test code = LY) 8.7 % 13.0-42.0 L MO% (test code = MO) 8.4 % 4.0-14.0 EO% (test code = EO) 0.1 % 1.0-3.0 L BA% (test code = BA) 0.1 % 1.0-3.0 L IG% (test code = IG%) 1.2 % 0.0-0.4 H Neutrophils (test 83 % 42-75 H The value no value code = NEUTR) originally rel eased by on ############### was changed to 83 b y [id number] on 01/13/2018 18:0 8 Lymphocytes (test 13 % 13-42 The value no value code = LYMPH) originally rel eased by on ############### was changed to 13 b y [id number] on 01/13/2018 18:0 8 Monocytes (test code 4 % 4-14 The zoe ue no value = MONOS) originally rele ased by on ############### was changed to 4 by [id number] on 01/13/2018 18:0 8 #2 unit of PRBC completed at 1404 Critical values were called to SHANTE MALDONADO RN/OB by [id number] on 01/13/2018 16:21 PM. Results were read back by SHANTE MALDONADO RN/OB.RBC, [id number] 13:21:00 Test Item Value Reference Range Interpretation Comments RBC Unit (test code Released for Transfusion = RBCUNIT) RBC, [id number] 09:43:00 Test Item Value Reference Range Interpretation Comments RBC Unit (test code Released for Transfusion = RBCUNIT) CT ABDOMEN/PELVIS W/O [id number] 09:25:56NPO 4 hours. Do not withhold meds rule out bleedCT of the abdomen and pelvis without contrast:History: Status post yesterday, assess for bleedMultidetector CT of the abdomen and pelvis was performed without contrast. TotalDLP 570 mGy-cm.Sections through the visualized lung bases show a minimal right pleuraleffusion. An atrial septal occluder device is incidentally noted.The liver, spleen, pancreas, adrenals, kidneys and abdominal aorta appear withinnormal limits. There are a few small stones present in the gallbladder.Postoperative pneumoperitoneum is noted with small amount of free air present.There is small amount of ascites noted along the periphery of the spleen.Ascites is also present along the caudal margin of the liver with smaller focusof higher density compatible with hemoperitoneum. There is a large amount offluid noted further caudally along the anterior aspect of the psoas muscles.Some of the fluid on the left may be retroperitoneal in location. There is alobulated mildly hyperdense mass in the left lower pelvis most compatible withhematoma. It measures approximately 9.3 x 5.0 x 6.2 cm. It displaces the bladderslightlyto the right of the midline as marked by the presence of a Foleycatheter.The uterus is enlarged in keeping with recent state. There isincreased density in the lower uterine segment near the level of the cervixwhich suggest hematoma. It measures 4.7 x 5.7 x 5.5 cm. There is mild relativelysymmetric prominence of the inferior rectus muscles near the level of theincision but no organized abdominal wall hematoma is identified.The bony structures are intact.Impression:1. Changes of recent C-sec tion with lobulated pelvic hematoma measuring 9.3 x5.0 x 6.2 cm as described.2. Limited hemoperitoneum inferior to the caudal margin of the liver.Hemorrhagic fluid in the left lower quadrant along the psoas muscle may beretroperitoneal and/or intraperitoneal.3. Hyperdensity in the inferior aspect of the uterus suggests postoperativehematoma.4. Cholelithiasis.5. The findings were discussed in person with Dr. Corea at 9:05 AM on thedate of exam.This final report was electronically signed by Dr Power Martino MD 01/13/20189:19 AMDictated By: POWER MARTINODate: 01/13/2018 09:25CROSSMATCH x 09:06:00 Test Item Value Reference Range Interpretation Comments Crossmatch (test code = Completed: Compatible XMATCH) CBC WITH AUTO [id number] 07:40:00 Test Item Value Reference Range Interpretation Comments WBC (test code = 17.58 10\\S\\3/ul 4.80-10.80 H WBC) RBC (test code = 1.75 10\\S\\6/ul 4.20-5.40 L RBC) Hemoglobin (test 5.6 gm/dl 12.0-14.0 LL code = HGB) Hematocrit (test 16.5 % 37.0-47.0 LL code = HCT) MCV (test code = 94.3 fL 81.0-99.0 MCV) MCH (test code = 32.0 pg 27.0-31.0 H MCH) MCHC (test code = 33.9 gm/dl 33.0-37.0 MCHC) RDW (test code = 15.6 % 11.5-14.5 H RDWVC) Platelet (test 121 10\\S\\3/ul 130-400 L code = PLT) MPV (test code = 11.2 fL 7.4-10.4 A MPV) NE% (test code = 79.4 % 42.0-75.0 H NE) LY% (test code = 10.4 % 13.0-42.0 L LY) MO% (test code = 8.8 % 4.0-14.0 MO) EO% (test code = 0.1 % 1.0-3.0 L EO) BA% (test code = 0.2 % 1.0-3.0 L BA) IG% (test code = 1.1 % 0.0-0.4 H IG%) Neutrophils (test 85 % 42-75 H The value no value code = NEUTR) originally rel eased by on ############### was changed to 85 b y [id number] on 01/13/2018 07:4 0 Lymphocytes (test 10 % 13-42 L The value no value code = LYMPH) originally rel eased by on ############### was changed to 10 b y [id number] on 01/13/2018 07:4 0 Monocytes (test 5 % 4-14 The value no value code = MONOS) originally rel eased by on ############### was changed to 5 by [id number] on 01/13/2018 07:4 0 RBC Morphology Anisocytosis SLT The value no value (test code = originally rele ased RBCMOR) by on ############### was changed to Anisocytosis SL T by [id number] on 01/13/2018 07:4 0 Critical values were called to TORIBIO LAURA/RN/OB/0630 by [id number] on 01/13/2018 06:31 AM. Results were read back by TORIBIO LAURA/SHIV/OB/0630.CROSSMATCH x 2 2018-01-12 14:01:00 Test Item Value Reference Range Interpretation Comments Crossmatch (test code = Completed: Compatible XMATCH) TYPE & [id number] 12:11:00 Test Item Value Reference Range Interpretation Comments ABO Blood Type (test code = ABO) B Rh (test code = RH) Positive Positive N Antibody Screen (test code = ABSCR) Negative Negative N HEP B SURFACE [id number] 12:06:00 Test Item Value Reference Range Interpretation Comments FT (test code = Negative Negative N HBSAG) (qualifier value) Hep B Surface Ag 0.04 mIU/mL 0.00-1.00 HBsAg Signa l Cutoff (Signal Value) Interpretatio n Guide: (test code = < 1.00 HBSAG.SV) Negative Spec imen is presumed to be negative for HB sAg. >=1.00 and < 5. 00 Reactive Spec imen is reactive for HB sAg. Suggest confirm ation by supplemental testing. > 5.00 Positive Specimen is pos itive for HBsAg. HIV 1, 12:06:00 Test Item Value Reference Range Interpretation Comments HIV 1, 2 (test code 0.07 0.00-0.89 INTERPRE TATION OF RESULTS: = HIV) Non-Reactive = < 0.90 s/c Reactive = > 1.00 s/c (Confirmat ory tests suggested) Inte rmediate = > 0.90 s/c and <1.00 s/c (results are ba sed on duplicate testi ng) 1. Result is consi dered as Non-Reactive if both the initial and rep eat testing results are non -reactive. 2. Result is c onsidered as Reactive if one or both the initial and rep eat testing results are robb ctive. (Con firmatory tests suggested ) [id number] 11:33:00 Test Item Value Reference Range Interpretation Comments FT (test code = RPR) Non-Reactive (qualifier Non-Reactive N value) CBC WITH AUTO [id number] 11:30:00 Test Item Value Reference Range Interpretation Comments WBC (test code = WBC) 12.46 10\\S\\3/ul 4.80-10.80 H RBC (test code = RBC) 3.63 10\\S\\6/ul 4.20-5.40 L Hemoglobin (test code = HGB) 11.3 gm/dl 12.0-14.0 L Hematocrit (test code = HCT) 32.9 % 37.0-47.0 L MCV (test code = MCV) 90.6 fL 81.0-99.0 MCH (test code = MCH) 31.1 pg 27.0-31.0 H MCHC (test code = MCHC) 34.3 gm/dl 33.0-37.0 RDW (test code = RDWVC) 15.1 % 11.5-14.5 H Platelet (test code = PLT) 118 10\\S\\3/ul 130-400 L MPV (test code = MPV) 10.8 fL 7.4-10.4 A NE% (test code = NE) 72.2 % 42.0-75.0 LY% (test code = LY) 15.2 % 13.0-42.0 MO% (test code = MO) 9.7 % 4.0-14.0 EO% (test code = EO) 0.8 % 1.0-3.0 L BA% (test code = BA) 0.3 % 1.0-3.0 L IG% (test code = IG%) 1.8 % 0.0-0.4 H [id number] 11:27:00 Test Item Value Reference Range Interpretation Comments Glucose (test code 88 mg/dl 75-110 = GLU) BUN (test code = 5.0 mg/dl 6.0-17.0 L BUN) Creatinine (test 0.5 mg/dl 0.4-1.2 code = CREA) Sodium (test code = 140 mmol/l 137-145 NA) Potassium (test 3.9 mmol/l 3.5-5.0 code = K) Chloride (test code 107 mmol/l 98-107 = CL) CO2 (test code = 21 mmol/l 22-30 L CO2) Anion Gap (test 12 code = GAP) Calcium (test code 8.8 mg/dl 8.4-10.2 = CALC) T Protein (test 6.2 gm/dl 5.1-8.7 code = TP) Albumin (test code 3.1 gm/dl 3.5-4.6 L = ALB) A/G Ratio (test 1.0 % 1.1-2.2 L code = AGRAT) AST (SGOT) (test 27 U/L 11-36 code = AST) ALT (SGPT) (test 31 U/L 11-40 code = ALT) Alkaline Phos (test 144 U/L 47-114 H code = ALKP) Total Bilirubin 0.1 mg/dl 0.2-1.2 L (test code = TBIL) Globulin (test code 3.1 gm/dl 2.3-3.5 = GLOBU) Calcium, Corrected 9.5 mg/dl 8.4-10.2 Various f ormulas exist (test code = for corrected s mere CALCCORR) calcium results , each yielding differ ent values. This corrected resul t was based on the fo rmula: Corrected Calci um = SerumCalcium + [0.8 * ( 4 - SerumAlbu min)] EGFR if >60 [place] (test code mL/min/1.73m\\ = EGFRAA) S\\2 EGFR if Non- >60 Estimate d Glomerular [place] (test code mL/min/1.73m\\ Filtrat ion Rate (eGFR) = EGFRNA) S\\2 Reference Inter vals Decision Points for 18 years and older and average body ma ss: >= 60 Does not exc lude kidney disease. 30 - 59 Suggests modera te chronic kidney disease and indicat es the need for furthe r investigation including asses sment of proteinuria and cardiovascular factors. < 30 Usually in dicates a need for refe rral for assessment and management of c hronic kidney failure. URINALYSIS WITH [id number] 11:22:00 Test Item Value Reference Range Interpretation Comments Color (test code = UCOLR) Lt. Yellow Clarity (test code = UCLAR) Cloudy Glucose (test code = UGLUC) NEGATIVE NEGATIVE N Bilirubin (test code = UBILI) NEGATIVE NEGATIVE N Ketones (test code = UKET) NEGATIVE NEGATIVE N Specific [place] (test code = 1.020 1.005-1.030 A USPGR) Blood (test code = UBLD) NEGATIVE NEGATIVE N PH (test code = UPH) 6.5 4.5-8.0 A Protein (test code = UPROT) NEGATIVE NEGATIVE N Urobilinogen (test code = U UROB) 0.2 >0.2 N Nitrite (test code = UNITR) NEGATIVE NEGATIVE N Leukocyte Esterase (test code = NEGATIVE NEGATIVE N ULEUK) WBC (test code = WBCUR) 1-5 0-5 A RBC (test code = RBCUR) 0-1 0-5 A Epithial Cells (test code = U EPI) 10-20 0-10 A Mucous (test code = UMUC) Trace None Seen A Bacteria (test code = UBACT) 1+ None Seen,Trace A Crystals Urine (test code = None Seen None Seen N URCRYS) TYPE & [id number] 22:28:00 Test Item Value Reference Range Interpretation Comments ABO Blood Type (test code = ABO) B Rh (test code = RH) Positive Positive N Antibody Screen (test code = ABSCR) Negative Negative N CBC WITH AUTO [id number] 21:48:00 Test Item Value Reference Range Interpretation Comments WBC (test code = 14.60 4.80-10.80 H WBC) 10\\S\\3/ul RBC (test code = 3.72 10\\S\\6/ul 4.20-5.40 L RBC) Hemoglobin (test 11.3 gm/dl 12.0-14.0 L code = HGB) Hematocrit (test 33.5 % 37.0-47.0 L code = HCT) MCV (test code = 90.1 fL 81.0-99.0 MCV) MCH (test code = 30.4 pg 27.0-31.0 MCH) MCHC (test code = 33.7 gm/dl 33.0-37.0 MCHC) RDW (test code = 15.0 % 11.5-14.5 H RDWVC) Platelet (test code 124 10\\S\\3/ul 130-400 L = PLT) MPV (test code = 10.6 fL 7.4-10.4 A "NOT MEASUR ED" MPV) RESULTS ARE DIS PLAYED WHEN THE INSTRU MENT HAS A SUPPRESSE D OR UNREPORTABLE RE SULT. THIS WILL MOST OFTEN HAPPEN WITH THE MPV WHEN THERE IS A N ABNORMAL PLATEL ET DISTRIBUTION DU E TO A CRITICAL LOW VA LUE OR PLATELET CLUMPI NG. THE RDW MAY BE SUPPRESSED IF T HERE ARE MULTIPLE PE AKS PRESENT ON THE RBC HISTOGRAM. IN THIS CASE, A MANUAL REVIEW OF THE SLIDE WI LL BE PERFORMED, AND RBC MORPHOLOGY WILL BE NOTED ON THE RE PORT. NE% (test code = 77.8 % 42.0-75.0 H NE) LY% (test code = 13.2 % 13.0-42.0 LY) MO% (test code = 6.8 % 4.0-14.0 MO) EO% (test code = 0.7 % 1.0-3.0 L EO) BA% (test code = 0.3 % 1.0-3.0 L BA) IG% (test code = 1.2 % 0.0-0.4 H IG%) US OB FOLLOW UP PER [id number] 13:54:15Obstetrical ultrasound after first trimester:History: Size and datesA single intrauterine is noted. The fetus was in cephalicpresentation. Spontaneous movement and cardiac activity was observedduring real-time examination. heart rate was recorded at 123 beats perminute. Amniotic fluid volume appeared within normal limits with an ALE of 14.1cm. The placenta is anterior. The cervix was not visualized.The craniofacial structures, spine, four-chamber heart, stomach, kidneys,bladderand extremities as visualized appeared unremarkable. A three-vessel cordwas noted. measurements are as follows:BPD 8.7 cm[35 weeks one day]Head circumference 32.2 cm36 weeks 3 daysAbdominal circumference 32.6 cm36 weeks 4 daysFemur length 7.3 cm37 weeks 2 daysThe estimated weight is 2960g plus or -432 g. Growth percentile is 25%.The measurements are low the mean but within 2 standard deviations of themean.Impression: Single intrauterine with an estimated gestational age of38 weeks zero days and estimated date of delivery of January 20, 2018 based on priormeasurements.This final report was electronically signed by Dr Power Martino MD 01/06/20181:48 PMDictated By: FRANCISCA MARTINO CHARDDate: 01/06/2018 13:54CULTURE, DARVINE [id number] 09:06:00Specimen: BloodCollected: 10/31/2017 06:38 Status: Final Last Updated: 11/05/2017 09:04 Culture Result (Final) (Final) No Growth After 5 DaysCULTURE, BLOOD 2017-11-04 15:21:00Specimen: BloodCollected: 10/31/2017 06:38 Status: Final Last Updated: 11/02/2017 06:41 Gram Stain (Final) (Final) Gram Positive Cocci In Pairs and Clusters resembling Staphylococcussp. Culture Result (Final) (Final) Preliminary Result: Positive Specimen sent to [facility] for furtherworkup Result called to Olivia Ugarte LVN 11/01/17 @ 0803 by Coagulase Negative Staphylococcus Probable Contamination Notify Microbiology within 48 hours if further workup is required extension [phone] or [phone]. Isolate (Final) (Final) Stap hylococcus speciesLACTIC ACID [id number] 07:03:00 Test Item Value Reference Range Interpretation Comments LACTATE (test code = LAC) 1.9 mmol/l 0.7-2.0 CBC WITH AUTO [id number] 06:19:00 Test Item Value Reference Range Interpretation Comments WBC (test code = 21.63 4.80-10.80 H WBC) 10\\S\\3/ul RBC (test code = 3.16 10\\S\\6/ul 4.20-5.40 L RBC) Hemoglobin (test 9.4 gm/dl 12.0-14.0 L code = HGB) Hematocrit (test 27.8 % 37.0-47.0 L code = HCT) MCV (test code = 88.0 fL 81.0-99.0 MCV) MCH (test code = 29.7 pg 27.0-31.0 MCH) MCHC (test code = 33.8 gm/dl 33.0-37.0 MCHC) RDW (test code = 14.6 % 11.5-14.5 H RDWVC) Platelet (test code 175 10\\S\\3/ul 130-400 = PLT) MPV (test code = 9.7 fL 7.4-10.4 A "NOT MEASUR ED" MPV) RESULTS ARE DISPLAYED WHEN THE INSTRUMENT HAS A SUPPRESSED OR UNREPORTABLE RE SULT. THIS WILL MOST OFTEN HAPPEN WI TH THE MPV WHEN TH ERE IS AN ABNORMAL PLATELET DISTRIBUTION DU E TO A CRITICAL LOW VALUE OR PLATELET CLUMPING. THE RDW MAY BE SUPPRESS ED IF THERE ARE MULTI PLE PEAKS PRESENT O N THE RBC HISTOGRAM. IN THIS CASE, A MA NUAL REVIEW OF THE S LIDE WILL BE PERFORM ED, AND RBC MORPHOL OGY WILL BE NOTED O N THE REPORT. NE% (test code = NE) 88.9 % 42.0-75.0 H LY% (test code = LY) 2.8 % 13.0-42.0 L MO% (test code = MO) 7.4 % 4.0-14.0 EO% (test code = EO) 0.0 % 1.0-3.0 L BA% (test code = BA) 0.1 % 1.0-3.0 L IG% (test code = 0.8 % 0.0-0.4 H IG%) Neutrophils (test 89 10\\S\\3/ul 42-75 H The value no value code = NEUTR) originally rel eased by on ############### was changed to 89 b y [id number] on 10/31/2017 06:1 9 Lymphocytes (test 4 % 13-42 L The value no value code = LYMPH) originally rel eased by on ############### was changed to 4 by [id number] on 10/31/2017 06:1 9 Monocytes (test code 7 % 4-14 The zoe ue no value = MONOS) originally rele ased by on ############### was changed to 7 by [id number] on 10/31/2017 06:1 9 URINALYSIS WITH [id number] 02:37:00 Test Item Value Reference Range Interpretation Comments Color (test code = UCOLR) LT. YELLOW Clarity (test code = UCLAR) CLEAR Glucose (test code = UGLUC) NEGATIVE NEGATIVE N Bilirubin (test code = UBILI) NEGATIVE NEGATIVE N Ketones (test code = UKET) NEGATIVE NEGATIVE N Specific [place] (test code = 1.015 1.005-1.030 A USPGR) Blood (test code = UBLD) NEGATIVE NEGATIVE N PH (test code = UPH) 6.5 4.5-8.0 A Protein (test code = UPROT) NEGATIVE NEGATIVE N Urobilinogen (test code = U UROB) 0.2 >0.2 N Nitrite (test code = UNITR) NEGATIVE NEGATIVE N Leukocyte Esterase (test code = NEGATIVE NEGATIVE N ULEUK) WBC (test code = WBCUR) 0-5 0-5 N RBC (test code = RBCUR) 0-5 0-5 N Epithial Cells (test code = U EPI) 10-20 0-10 A Mucous (test code = UMUC) Trace None Seen A Bacteria (test code = UBACT) Trace None Seen,Trace N AMYLASE, [id number] 02:26:00 Test Item Value Reference Range Interpretation Comments Amylase (test code = AMYL) 67 U/L 12-103 LIPASE, [id number] 02:26:00 Test Item Value Reference Range Interpretation Comments Lipase (test code = LIPA) 72 U/L 8-223 [id number] 02:26:00 Test Item Value Reference Range Interpretation Comments Glucose (test code 103 mg/dl 75-110 = GLU) BUN (test code = 7.0 mg/dl 6.0-17.0 BUN) Creatinine (test 0.5 mg/dl 0.4-1.2 code = CREA) Sodium (test code = 135 mmol/l 137-145 L NA) Potassium (test 3.3 mmol/l 3.5-5.0 L code = K) Chloride (test code 106 mmol/l 98-107 = CL) CO2 (test code = 22 mmol/l 22-30 CO2) Calcium (test code 8.7 mg/dl 8.4-10.2 = CALC) T Protein (test 6.7 gm/dl 5.1-8.7 code = TP) Albumin (test code 3.3 gm/dl 3.5-4.6 L = ALB) A/G Ratio (test 1.0 % 1.1-2.2 L code = AGRAT) AST (SGOT) (test 19 U/L 11-36 code = AST) ALT (SGPT) (test 23 U/L 11-40 code = ALT) Alkaline Phos (test 67 U/L 47-114 code = ALKP) Total Bilirubin 0.6 mg/dl 0.2-1.2 (test code = TBIL) Globulin (test code 3.4 gm/dl 2.3-3.5 = GLOBU) Anion Gap (test 7 code = GAP) Calcium, Corrected 9.3 mg/dl 8.4-10.2 Various f ormulas exist (test code = for corrected s mere CALCCORR) calcium results , each yielding differ ent values. This corrected resul t was based on the fo rmula: Corrected Calci um = SerumCalcium + [0.8 * ( 4 - SerumAlbu min)] EGFR if >60 [place] (test code mL/min/1.73m\\ = EGFRAA) S\\2 EGFR if Non- >60 Estimate d Glomerular [place] (test code mL/min/1.73m\\ Filtrat ion Rate (eGFR) = EGFRNA) S\\2 Reference Inter vals Decision Points for 18 years and older and average body ma ss: >= 60 Does not exc lude kidney disease. 30 - 59 Suggests modera te chronic kidney disease and indicat es the need for furthe r investigation including asses sment of proteinuria and cardiovascular factors. < 30 Usually in dicates a need for refe rral for assessment and management of c hronic kidney failure. DRUG SCREEN [id number] 02:17:00 Test Item Value Reference Range Interpretation Comments FT (test code Negative = AMPHET) (qualifier value) FT (test code Negative = WALLY) (qualifier value) FT (test code Negative = BENZO) (qualifier value) FT (test code Negative = SURYA) (qualifier value) FT (test code Negative = MTD) (qualifier value) FT (test code Negative = OPIAT) (qualifier value) FT (test code Negative The following table = PCP) (qualifier value) provides a n interpretive guide for the D rugs of Abuse ran on e [employer] 5.1 analyzer li sted there in: Amphetamines < 1000 ng/ml = Negati ve Barbituates < 200 ng/ml = Negati ve Benzodiazapines < 200 ngml = Negati ve Cocaine < 300 ng/ml = Negati ve Methadone < 300 ng/ml = Negati ve Opiate < 300 ng/ml = Negati ve PCP < 25 ng/ml = Negati ve THC < 50 ng/ml = Negati ve Results equal t o or greater than th e above cut-off values = Presumptive Pos itive. Confirmation of Presumptive Pos itive results are ciaran ilable upon request. FT (test code Negative = THC) (qualifier value) CULTURE, [id number] 05:46:00Specimen: BloodCollected: 10/14/2017 22:06 Status: Final Last Updated: 10/20/2017 05:41 Culture Result (Final) (Final) No Growth After 5 DaysCULTURE, ANAEROBE [id number] 05:46:00Specimen: BloodCollected: 10/14/2017 22:06 Status: Final Last Updated: 10/20/2017 05:41 Culture Result (Final) (Final) No Growth After 5 DaysCBC WITH AUTO DIFF 2017-10-16 08:14:00 Test Item Value Reference Range Interpretation Comments WBC (test code = 16.22 4.80-10.80 H WBC) 10\\S\\3/ul RBC (test code = 2.88 10\\S\\6/ul 4.20-5.40 L RBC) Hemoglobin (test 8.5 gm/dl 12.0-14.0 L code = HGB) Hematocrit (test 25.7 % 37.0-47.0 L code = HCT) MCV (test code = 89.2 fL 81.0-99.0 MCV) MCH (test code = 29.5 pg 27.0-31.0 MCH) MCHC (test code = 33.1 gm/dl 33.0-37.0 MCHC) RDW (test code = 14.5 % 11.5-14.5 RDWVC) Platelet (test code 156 10\\S\\3/ul 130-400 = PLT) MPV (test code = 10.6 fL 7.4-10.4 A "NOT MEASUR ED" MPV) RESULTS ARE DISPLAYED WHEN THE INSTRUMENT HAS A SUPPRESSED OR UNREPORTABLE RE SULT. THIS WILL MOST OFTEN HAPPEN WI TH THE MPV WHEN TH ERE IS AN ABNORMAL PLATELET DISTRIBUTION DU E TO A CRITICAL LOW VALUE OR PLATELET CLUMPING. THE RDW MAY BE SUPPRESS ED IF THERE ARE MULTI PLE PEAKS PRESENT O N THE RBC HISTOGRAM. IN THIS CASE, A ABBE VELEZ REVIEW OF THE S LIDE WILL BE PERFORM ED, AND RBC MORPHOL OGY WILL BE NOTED O N THE REPORT. NE% (test code = NE) 86.5 % 42.0-75.0 H LY% (test code = LY) 4.7 % 13.0-42.0 L MO% (test code = MO) 6.2 % 4.0-14.0 EO% (test code = EO) 0.7 % 1.0-3.0 L BA% (test code = BA) 0.2 % 1.0-3.0 L IG% (test code = 1.7 % 0.0-0.4 H IG%) Neutrophils (test 92 10\\S\\3/ul 42-75 H The value no value code = NEUTR) originally rel eased by on ############### was changed to 92 b y [id number] on 10/16/2017 08:1 4 Lymphocytes (test 5 % 13-42 L The value no value code = LYMPH) originally rel eased by on ############### was changed to 5 by [id number] on 10/16/2017 08:1 4 Monocytes (test code 3 % 4-14 L The zoe ue no value = MONOS) originally rele ased by on ############### was changed to 3 by [id number] on 10/16/2017 08:1 4 LIPASE, [id number] 06:23:00 Test Item Value Reference Range Interpretation Comments Lipase (test code = LIPA) 40 U/L 8-223 [id number] 06:23:00 Test Item Value Reference Range Interpretation Comments Glucose (test code 112 mg/dl 75-110 H = GLU) BUN (test code = 5.0 mg/dl 6.0-17.0 L BUN) Creatinine (test 0.5 mg/dl 0.4-1.2 code = CREA) Sodium (test code = 138 mmol/l 137-145 NA) Potassium (test 3.5 mmol/l 3.5-5.0 code = K) Chloride (test code 106 mmol/l 98-107 = CL) CO2 (test code = 20 mmol/l 22-30 L CO2) Anion Gap (test 13 code = GAP) Calcium (test code 8.7 mg/dl 8.4-10.2 = CALC) T Protein (test 6.3 gm/dl 5.1-8.7 code = TP) Albumin (test code 2.9 gm/dl 3.5-4.6 L = ALB) A/G Ratio (test 0.9 % 1.1-2.2 L code = AGRAT) AST (SGOT) (test 28 U/L 11-36 code = AST) ALT (SGPT) (test 29 U/L 11-40 code = ALT) Alkaline Phos (test 60 U/L 47-114 code = ALKP) Total Bilirubin 0.1 mg/dl 0.2-1.2 L (test code = TBIL) Globulin (test code 3.4 gm/dl 2.3-3.5 = GLOBU) Calcium, Corrected 9.6 mg/dl 8.4-10.2 Various f ormulas exist (test code = for corrected s mere CALCCORR) calcium results , each yielding differ ent values. This corrected resul t was based on the fo rmula: Corrected Calci um = SerumCalcium + [0.8 * ( 4 - SerumAlbu min)] EGFR if >60 [place] (test code mL/min/1.73m\\ = EGFRAA) S\\2 EGFR if Non- >60 Estimate d Glomerular [place] (test code mL/min/1.73m\\ Filtrat ion Rate (eGFR) = EGFRNA) S\\2 Reference Inter vals Decision Points for 18 years and older and average body ma ss: >= 60 Does not exc lude kidney disease. 30 - 59 Suggests modera te chronic kidney disease and indicat es the need for furthe r investigation including asses sment of proteinuria and cardiovascular factors. < 30 Usually in dicates a need for refe rral for assessment and management of c hronic kidney failure. US OB COMP > 14 WKS (TA)2017-10-15 09:58:44Obstetrical ultrasound after first trimester:History: Size and datesA single intrauterine is noted. The fetus was in breech presentation.Spontaneous movement and cardiac activity was observed during real-timeexamination. heart rate was recorded at 150 beats per minute. Amnioticfluid volume appeared within normal limits with an ALE of 17.7 cm. The placentais anterior and fundal. The cervix was closed and measured 4.9 cm in length.The craniofacial structures, spine, four-chamber h eart, stomach, kidneys,bladder and extremities as visualized appeared unremarkable. A three-vessel cordwas noted. measurements are as follows:BPD 6.4 cm[26 weeks zero days]Head circumference 24.0cm26 weeks one dayAbdominal circumference 21.9 cm26 weeks 3 daysFemur length 4.9 cm26 weeks 3 daysThe estimated weight is 919g plus or -134 g. Growth percentile is 45%. Thefetal measurements are within 2 standard deviations of the mean.Impression: Single intrauterine with an estimated gestational age of26 weeks one day and estimated date of delivery of January 20, 2018 based on priormeasur ements.This final report was electronically signed by Dr Power Martino MD 10/15/20179:52 AMDictatedBy: Wanda MARTINOte: 10/15/2017 09:58US ABDOMEN [id number] 09:48:53Abdominal ultrasound:Date of exam: 10/15/2017History: Abdominal painThe liver is normal in size and echogenicity. No focal parenchymal abnormalityor intrahepatic biliary duct dilatation is identified. Hepatopedal flow is notedin the portal vein.The gallbladder shows multiple tiny stones. There is no wall thickening orpericholecystic fluid. No sonographic Beasley's sign was elicited. The commonduct was not dilated.The spleen appeared unremarkable. The visualized pancreas, IVC and aorta show nosignificant abnormality. No renal abnormality is identified.There is no ascites.Impression: Cholelithiasis.This final report was electronically signed by Dr Power Martino MD 10/15/20179:42 AMDictated By: Wanda MARTINOte: 10/15/2017 09:48LACTIC ACID [id number] 07:42:00 Test Item Value Reference Range Interpretation Comments LACTATE (test code = LAC) 1.1 mmol/l 0.7-2.0 CBC WITH AUTO [id number] 07:24:00 Test Item Value Reference Range Interpretation Comments WBC (test code = 27.98 4.80-10.80 H WBC) 10\\S\\3/ul RBC (test code = 2.82 10\\S\\6/ul 4.20-5.40 L RBC) Hemoglobin (test 8.5 gm/dl 12.0-14.0 L code = HGB) Hematocrit (test 25.0 % 37.0-47.0 L code = HCT) MCV (test code = 88.7 fL 81.0-99.0 MCV) MCH (test code = 30.1 pg 27.0-31.0 MCH) MCHC (test code = 34.0 gm/dl 33.0-37.0 MCHC) RDW (test code = 14.0 % 11.5-14.5 RDWVC) Platelet (test code 150 10\\S\\3/ul 130-400 = PLT) MPV (test code = 10.5 fL 7.4-10.4 A "NOT MEASUR ED" MPV) RESULTS ARE DISPLAYED WHEN THE INSTRUMENT HAS A SUPPRESSED OR UNREPORTABLE RE SULT. THIS WILL MOST OFTEN HAPPEN WI TH THE MPV WHEN TH ERE IS AN ABNORMAL PLATELET DISTRIBUTION DU E TO A CRITICAL LOW VALUE OR PLATELET CLUMPING. THE RDW MAY BE SUPPRESS ED IF THERE ARE MULTI PLE PEAKS PRESENT O N THE RBC HISTOGRAM. IN THIS CASE, A MA TOYAAL REVIEW OF THE S LIDE WILL BE PERFORM ED, AND RBC MORPHOL OGY WILL BE NOTED O N THE REPORT. NE% (test code = NE) 92.1 % 42.0-75.0 H LY% (test code = LY) 2.4 % 13.0-42.0 L MO% (test code = MO) 4.1 % 4.0-14.0 EO% (test code = EO) 0.0 % 1.0-3.0 L BA% (test code = BA) 0.1 % 1.0-3.0 L IG% (test code = 1.3 % 0.0-0.4 H IG%) Neutrophils (test 93 10\\S\\3/ul 42-75 H The value no value code = NEUTR) originally rel eased by on ############### was changed to 93 b y [id number] on 10/15/2017 07:2 4 Lymphocytes (test 2 % 13-42 L The value no value code = LYMPH) originally rel eased by on ############### was changed to 2 by [id number] on 10/15/2017 07:2 4 Monocytes (test code 5 % 4-14 The zoe ue no value = MONOS) originally rele ased by on ############### was changed to 5 by [id number] on 10/15/2017 07:2 4 [id number] 06:15:00 Test Item Value Reference Range Interpretation Comments Glucose (test code 113 mg/dl 75-110 H = GLU) BUN (test code = 4.0 mg/dl 6.0-17.0 L BUN) Creatinine (test 0.4 mg/dl 0.4-1.2 code = CREA) Sodium (test code = 137 mmol/l 137-145 NA) Potassium (test 4.0 mmol/l 3.5-5.0 code = K) Chloride (test code 107 mmol/l 98-107 = CL) CO2 (test code = 20 mmol/l 22-30 L CO2) Anion Gap (test 10 code = GAP) Calcium (test code 8.4 mg/dl 8.4-10.2 = CALC) T Protein (test 6.1 gm/dl 5.1-8.7 code = TP) Albumin (test code 2.9 gm/dl 3.5-4.6 L = ALB) A/G Ratio (test 0.9 % 1.1-2.2 L code = AGRAT) AST (SGOT) (test 18 U/L 11-36 code = AST) ALT (SGPT) (test 18 U/L 11-40 code = ALT) Alkaline Phos (test 51 U/L 47-114 code = ALKP) Total Bilirubin 0.2 mg/dl 0.2-1.2 (test code = TBIL) Globulin (test code 3.2 gm/dl 2.3-3.5 = GLOBU) Calcium, Corrected 9.3 mg/dl 8.4-10.2 Various f ormulas exist (test code = for corrected s mere CALCCORR) calcium results , each yielding differ ent values. This corrected resul t was based on the fo rmula: Corrected Calci um = SerumCalcium + [0.8 * ( 4 - SerumAlbu min)] EGFR if >60 [place] (test code mL/min/1.73m\\ = EGFRAA) S\\2 EGFR if Non- >60 Estimate d Glomerular [place] (test code mL/min/1.73m\\ Filtrat ion Rate (eGFR) = EGFRNA) S\\2 Reference Inter vals Decision Points for 18 years and older and average body ma ss: >= 60 Does not exc lude kidney disease. 30 - 59 Suggests modera te chronic kidney disease and indicat es the need for furthe r investigation including asses sment of proteinuria and cardiovascular factors. < 30 Usually in dicates a need for refe rral for assessment and management of c hronic kidney failure. XR CHEST AP/PA 1 [id number] 21:51:13XR CHEST AP/PA 1 VIEW,Clinical history: PNEU: Chest-PneumoniafeverTechnique: XR CHEST AP/PA 1 VIEWComparison: NoneDISCUSSION:ASD closure device. Otherwise normal appearance of the heart, mediastinum, andpleural spaces. Note the left costophrenic angle is partially excluded.IMPRESSION:No acute abnormality.This final report was electronically signed by Dr Orin Chapin MD 10/14/20179:44 PMDictated By:LAURA CHAPINate: 10/14/2017 21:51CBC WITH AUTO [id number] 21:43:00 Test Item Value Reference Range Interpretation Comments WBC (test code = 20.44 4.80-10.80 H WBC) 10\\S\\3/ul RBC (test code = 2.99 10\\S\\6/ul 4.20-5.40 L RBC) Hemoglobin (test 9.0 gm/dl 12.0-14.0 L code = HGB) Hematocrit (test 26.1 % 37.0-47.0 L code = HCT) MCV (test code = 87.3 fL 81.0-99.0 MCV) MCH (test code = 30.1 pg 27.0-31.0 MCH) MCHC (test code = 34.5 gm/dl 33.0-37.0 MCHC) RDW (test code = 13.9 % 11.5-14.5 RDWVC) Platelet (test code 150 10\\S\\3/ul 130-400 = PLT) MPV (test code = 9.8 fL 7.4-10.4 A "NOT MEASUR ED" MPV) RESULTS ARE DISPLAYED WHEN THE INSTRUMENT HAS A SUPPRESSED OR UNREPORTABLE RE SULT. THIS WILL MOST OFTEN HAPPEN WI TH THE MPV WHEN TH ERE IS AN ABNORMAL PLATELET DISTRIBUTION DU E TO A CRITICAL LOW VALUE OR PLATELET CLUMPING. THE RDW MAY BE SUPPRESS ED IF THERE ARE MULTI PLE PEAKS PRESENT O N THE RBC HISTOGRAM. IN THIS CASE, A MA NUAL REVIEW OF THE S LIDE WILL BE PERFORM ED, AND RBC MORPHOL OGY WILL BE NOTED O N THE REPORT. NE% (test code = NE) 92.6 % 42.0-75.0 H LY% (test code = LY) 2.0 % 13.0-42.0 L MO% (test code = MO) 4.5 % 4.0-14.0 EO% (test code = EO) 0.0 % 1.0-3.0 L BA% (test code = BA) 0.1 % 1.0-3.0 L IG% (test code = 0.8 % 0.0-0.4 H IG%) Bands (test code = 1 % 0-2 The value no value BANDM) originally rele ased by on ############### was changed to 1 by [id number] on 10/14/2017 21:4 3 Neutrophils (test 95 10\\S\\3/ul 42-75 H The value no value code = NEUTR) originally rel eased by on ############### was changed to 95 b y [id number] on 10/14/2017 21:4 3 Lymphocytes (test 1 % 13-42 L The value no value code = LYMPH) originally rel eased by on ############### was changed to 1 by [id number] on 10/14/2017 21:4 3 Monocytes (test code 3 % 4-14 L The zoe ue no value = MONOS) originally rele ased by on ############### was changed to 3 by [id number] on 10/14/2017 21:4 3 [id number] 20:59:00 Test Item Value Reference Range Interpretation Comments Glucose (test code 203 mg/dl 75-110 H = GLU) BUN (test code = 6.0 mg/dl 6.0-17.0 BUN) Creatinine (test 0.5 mg/dl 0.4-1.2 code = CREA) Sodium (test code = 136 mmol/l 137-145 L NA) Potassium (test 3.0 mmol/l 3.5-5.0 L code = K) Chloride (test code 105 mmol/l 98-107 = CL) CO2 (test code = 21 mmol/l 22-30 L CO2) Calcium (test code 8.7 mg/dl 8.4-10.2 = CALC) T Protein (test 6.4 gm/dl 5.1-8.7 code = TP) Albumin (test code 3.1 gm/dl 3.5-4.6 L = ALB) A/G Ratio (test 0.9 % 1.1-2.2 L code = AGRAT) AST (SGOT) (test 25 U/L 11-36 code = AST) ALT (SGPT) (test 22 U/L 11-40 code = ALT) Alkaline Phos (test 54 U/L 47-114 code = ALKP) Total Bilirubin 0.4 mg/dl 0.2-1.2 (test code = TBIL) Globulin (test code 3.3 gm/dl 2.3-3.5 = GLOBU) Anion Gap (test 10 code = GAP) Calcium, Corrected 9.4 mg/dl 8.4-10.2 Various f ormulas exist (test code = for corrected s mere CALCCORR) calcium results , each yielding differ ent values. This corrected resul t was based on the fo rmula: Corrected Calci um = SerumCalcium + [0.8 * ( 4 - SerumAlbu min)] EGFR if >60 [place] (test code mL/min/1.73m\\ = EGFRAA) S\\2 EGFR if Non- >60 Estimate d Glomerular [place] (test code mL/min/1.73m\\ Filtrat ion Rate (eGFR) = EGFRNA) S\\2 Reference Inter vals Decision Points for 18 years and older and average body ma ss: >= 60 Does not exc lude kidney disease. 30 - 59 Suggests modera te chronic kidney disease and indicat es the need for furthe r investigation including asses sment of proteinuria and cardiovascular factors. < 30 Usually in dicates a need for refe rral for assessment and management of c hronic kidney failure. FLU [id number] 20:29:00 Test Item Value Reference Range Interpretation Comments Flu A Screen (test Negative Negative N EFFECTIVE 09/10/2013 - A code = FLUA) method change h as occurred. A mo lecular method for Flu testing will replace th e current method. Both F satya A and Flu B will be t ested and results will co ntinue to be listed as "N egative or Positive". Whi le this method is more specific in the detectio n of both strains, confir matory testing is avai lable upon request. ldh Flu B Screen (test Negative Negative N EFFECTIVE 09/10/2013 - A code = FLUB) method change h as occurred. A mo lecular method for Flu testing will replace th e current method. Both F satya A and Flu B will be t ested and results will co ntinue to be listed as "N egative or Positive". Whi le this method is more specific in the detectio n of both strains, confir matory testing is avai lable upon request. ldh If a specimen is collected by a nurse, then you MUST fill out the Collected and Collected By araujo URINALYSIS WITH [id number] 20:21:00 Test Item Value Reference Range Interpretation Comments Color (test code = UCOLR) Yellow Clarity (test code = UCLAR) CLEAR Glucose (test code = UGLUC) NEGATIVE NEGATIVE N Bilirubin (test code = UBILI) NEGATIVE NEGATIVE N Ketones (test code = UKET) >=80 NEGATIVE A Specific [place] (test code = USPGR) 1.025 1.005-1.030 A Blood (test code = UBLD) NEGATIVE NEGATIVE N PH (test code = UPH) 6.0 4.5-8.0 A Protein (test code = UPROT) NEGATIVE NEGATIVE N Urobilinogen (test code = U UROB) 0.2 >0.2 N Nitrite (test code = UNITR) NEGATIVE NEGATIVE N Leukocyte Esterase (test code = NEGATIVE NEGATIVE N ULEUK) WBC (test code = WBCUR) 0-2 0-5 A RBC (test code = RBCUR) 0-2 0-5 A Epithial Cells (test code = U EPI) 30-40 0-10 A Mucous (test code = UMUC) Moderate None Seen A Bacteria (test code = UBACT) Trace None Seen,Trace N US OB COMP > 14 WKS (TA)2017-09-08 16:13:55Obstetrical ultrasound after first trimester:History: Size and datesA single intrauterine is noted. The fetus was in variablepresentation. Spontaneous movement and cardiac activity was observedduring real-time examination. heart rate was recorded at 144 beats perminute. Amniotic fluid volume appeared within normal limits with an ALE of 13.7cm. The placenta is fundal. The cervix was closed and measured 4.6 cm in length.The craniofacial structures, spine, four-chamber heart, stomach, kidneys,bladder and extremities as visualized appeared unremarkable. A three- vessel cordwas noted. measurements are as follows:BPD 4.8 cm[20 weeks 4 days]Head circumference 18.5 cm20 weeks 6 daysAbdominal circumference 15.5 cm20 weeks 5 daysFemur length 3.5 cm21 week zero daysThe estimated weight is 377g plus or -55 g. Growth percentile is 41%. Thefetal measurements are within 2 standard deviations of the mean.Impression: Single intrauterine with an estimated gestational age of20 weeks 6 days and estimated date of delivery of January 20, 2018 based on currentmeasurements.This final report was electronically signed by Dr Power Martino MD 09/08/20174:07 PMDictated By: POWER MARTINODate: 09/08/2017 16:13URINALYSIS WITH [id number] 15:46:00 Test Item Value Reference Range Interpretation Comments Color (test code = UCOLR) Yellow Clarity (test code = UCLAR) CLEAR Glucose (test code = UGLUC) NEGATIVE NEGATIVE N Bilirubin (test code = UBILI) NEGATIVE NEGATIVE N Ketones (test code = UKET) NEGATIVE NEGATIVE N Specific [place] (test code = USPGR) 1.025 1.005-1.030 A Blood (test code = UBLD) NEGATIVE NEGATIVE N PH (test code = UPH) 6.0 4.5-8.0 A Protein (test code = UPROT) NEGATIVE NEGATIVE N Urobilinogen (test code = U UROB) 0.2 >0.2 N Nitrite (test code = UNITR) NEGATIVE NEGATIVE N Leukocyte Esterase (test code = NEGATIVE NEGATIVE N ULEUK) WBC (test code = WBCUR) 0-5 0-5 N RBC (test code = RBCUR) 0-1 0-5 A Epithial Cells (test code = U EPI) TNTC 0-10 A Mucous (test code = UMUC) Large None Seen A Bacteria (test code = UBACT) 3+ None Seen,Trace A TEST, Urine [id number] 15:41:00 Test Item Value Reference Range Interpretation Comments (Urine) (test code = Positive PREGU) If a specimen is collected by a nurse, then you MUST fill out the Collected and Collected By araujo [id number] 15:29:00 Test Item Value Reference Range Interpretation Comments CPK (test code = CPK) <20 U/L 30-135 L [id number] 15:29:00 Test Item Value Reference Range Interpretation Comments Glucose (test code 101 mg/dl 75-110 = GLU) BUN (test code = 9.0 mg/dl 6.0-17.0 BUN) Creatinine (test 0.5 mg/dl 0.4-1.2 code = CREA) Sodium (test code = 133 mmol/l 137-145 L NA) Potassium (test 3.9 mmol/l 3.5-5.0 code = K) Chloride (test code 106 mmol/l 98-107 = CL) CO2 (test code = 23 mmol/l 22-30 CO2) Calcium (test code 8.5 mg/dl 8.4-10.2 = CALC) T Protein (test 6.8 gm/dl 5.1-8.7 code = TP) Albumin (test code 3.7 gm/dl 3.5-4.6 = ALB) A/G Ratio (test 1.2 % 1.1-2.2 code = AGRAT) AST (SGOT) (test 17 U/L 11-36 code = AST) ALT (SGPT) (test 23 U/L 11-40 code = ALT) Alkaline Phos (test 42 U/L 47-114 L code = ALKP) Total Bilirubin 0.3 mg/dl 0.2-1.2 (test code = TBIL) Globulin (test code 3.1 gm/dl 2.3-3.5 = GLOBU) Anion Gap (test 5 code = GAP) Calcium, Corrected 8.7 mg/dl 8.4-10.2 Various f ormulas exist (test code = for corrected s mere CALCCORR) calcium results , each yielding differ ent values. This corrected resul t was based on the fo rmula: Corrected Calci um = SerumCalcium + [0.8 * ( 4 - SerumAlbu min)] EGFR if >60 [place] (test code mL/min/1.73m\\ = EGFRAA) S\\2 EGFR if Non- >60 Estimate d Glomerular [place] (test code mL/min/1.73m\\ Filtrat ion Rate (eGFR) = EGFRNA) S\\2 Reference Inter vals Decision Points for 18 years and older and average body ma ss: >= 60 Does not exc lude kidney disease. 30 - 59 Suggests modera te chronic kidney disease and indicat es the need for furthe r investigation including asses sment of proteinuria and cardiovascular factors. < 30 Usually in dicates a need for refe rral for assessment and management of c hronic kidney failure. CBC WITH AUTO [id number] 15:14:00 Test Item Value Reference Range Interpretation Comments WBC (test code = WBC) 9.08 10\\S\\3/ul 4.80-10.80 RBC (test code = RBC) 3.48 10\\S\\6/ul 4.20-5.40 L Hemoglobin (test code = HGB) 10.2 gm/dl 12.0-14.0 L Hematocrit (test code = HCT) 29.5 % 37.0-47.0 L MCV (test code = MCV) 84.8 fL 81.0-99.0 MCH (test code = MCH) 29.3 pg 27.0-31.0 MCHC (test code = MCHC) 34.6 gm/dl 33.0-37.0 RDW (test code = RDWVC) 14.0 % 11.5-14.5 Platelet (test code = PLT) 154 10\\S\\3/ul 130-400 MPV (test code = MPV) 10.3 fL 7.4-10.4 A NE% (test code = NE) 83.1 % 42.0-75.0 H LY% (test code = LY) 9.4 % 13.0-42.0 L MO% (test code = MO) 6.4 % 4.0-14.0 EO% (test code = EO) 0.3 % 1.0-3.0 L BA% (test code = BA) 0.2 % 1.0-3.0 L IG% (test code = IG%) 0.6 % 0.0-0.4 H AUTO DIFFSTREP A [id number] 09:15:00 Test Item Value Reference Range Interpretation Comments Strep A Screen Positive Negative A TESTING IS PE RFORMED ON THE (test code = SAS) Contacts+ IA ANALYZER WHICH EMPLOYS [employer]MM[employer]OF [employer] TECHNOLOGY TO D ETECT GROUP A STREPTOCOCCAL A NTIGENS FROM THROAT SWABS OF SYMPTOMATIC PATIENTS. ALL NEGATIVE RESULTS ARE CON FIRMED BY BACTERIAL CULTU RE BECAUSE NEGATIVE RESULT S DO NOT PRECLUDE GROUP A STREP INFECTION AND S HOULD NOT BE USED THE MAULIK E BASIS FOR TREATMENT. THI S TEST IS INTENDED FOR PA OFESSIONAL AND LABORATORY USE AN AID IN THE DIAGNOSI S OF GROUP A STREPTOCOCCAL I NFECTION. If a specimen is collected by a nurse, then you MUST fill out the Collected and Collected By araujo
--- OUTSIDE RECORDS SUMMARY | 2020-08-02 10:27 | XMS REPORT | Continuity of Care Document ---
:[address] [facility] Care Team Providers Name Role Phone DR SONAL Primary Care Physician Allergies and Intolerances Code Code Allergy Type Reaction Severity Start End Status System Substance Date Date 22117 RXNorm vancomycin Drug red man Unknown Activ e allergy syndrome (disorder) 7052 RXNorm morphine Drug Unknown Inactiv e allergy 013 (disorder) Medications RxNorm Medication Dose Route Instructions Start End Status Date Date 826817 Benzocaine 100 15 mL mucous to affected Activ e MG/ML Mucous membrane mucosal area 4 Membrane Topical times per day Solution as needed. (as needed for mouth pain; swish and spit) Clindamycin Oral 450 mg oral orally 3 times Active per day (For 3 days) 585179 Cyclobenzaprine 5 mg oral orally 3 times C ompleted hydrochloride 5 MG per day as Oral Tablet needed. (for muscle spasms) Problems Code Code System Problem Name Start Date End Date Status 908745237 SNOMED-CT Dental abscess 06/10/2020 Active 053830779 SNOMED-CT Gastroesophageal reflux disease 05/14/2019 Active 134701455 SNOMED-CT Acute infective bronchitis 09/03/2018 Active 49740250 SNOMED-CT Palpitations 06/03/2018 U Active 508042806 SNOMED-CT Laceration - injury 02/16/2018 U Compl eted repeat caesarean section, 01/12/2018 U Active bilateral tubal ligation 39wks , previous c/sx 2 01/12/2018 U Active , undesired fertility 38 wks , uterine 01/07/2018 U Active contractions, previous caesarean section 9954249 SNOMED-CT Otitis externa 10/31/2017 U Active 74480686 SNOMED-CT Otitis media 10/31/2017 U Active 25 weeks , febrile 10/14/2017 U Active illness,leucocytosis 6725248 SNOMED-CT Influenza 08/23/2017 U Active 619579256 SNOMED-CT Syncope 06/27/2017 U Active 06/27/2017 U Active 705666342 SNOMED-CT Laceration - injury 02/26/2017 U Activ e 09255534 SNOMED-CT Streptococcal sore throat 11/11/2016 U Active 50327512 SNOMED-CT Congenital heart disease U Active 464946213 SNOMED-CT Asthma U Active 54908183 SNOMED-CT Bronchitis U Active 96747195 SNOMED-CT Disorder of the peripheral U Active nervous system 451086297 SNOMED-CT Back problem U Active 34377023 SNOMED-CT Pulmonic valve stenosis U A ctive 20573133 SNOMED-CT Atrial septal defect U Acti ve Procedures Code Code System Procedure Date PULMONARY VALVE REPLACEMENT 2004 2005 LEFT NECK ABSCESS I &D 2009 Results No data in the system Social History Code Code System Social History Description Dates Observe d Observation 031673128 SNOMED CT Current Smoking Current every day Status smoker UNK AdministrativeGender Sex Assigned At Unknown Vital Signs Code Code System Vitals Value Date 8310-5 [facility] Body Temperature 97.3 [degF] 06/10/2020 8865-8 INC Pulse Rate 78 {beats}/min 06/10/2020 9279-1 INC Respiratory Rate 18 /min 06/10/2020 43827-4 INC O2% BldC Oximetry 99 % 06/10/2020 8480-6 LOINC BP Systolic 119 mm[Hg] 06/10/2020 8462-4 LOINC BP Diastolic 82 mm[Hg] 06/10/2020 8302-2 LOINC Height 60 [in_i] 06/10/2020 59857-2 LOINC Weight 110 [lb_av] 06/10/2020 3140-1 LOINC Body surface area Derived from formula 1. 45 m2 06/10/2020 86542-7 INC BMI (Body Mass Index) 21.5 kg/m2 2019 Goals Section No data in the system Health Concerns No data in the systemEncounter Diagnosis Date Code Code System Diagnosis Status K04.7 ICD10 PERIAPICAL ABSCESS WITHOUT S INUS Active Advance Directives Patient does NOT have Living Will Directive Type Effective Date Bingo Manager Notes Supporting Document Name Address Phone No Directive Type 05/14/2019 9:10:51 Not Specified Not Specified Not S pecified None No specified PM Patient does NOT have Living Will Directive Type Effective Date Bingo Manager Notes Supporting Document Name Address Phone No Directive Type 01/07/2018 6:04:35 Not Specified Not Specified Not S pecified None No specified PM Patient does NOT have Living Will Directive Type Effective Date Bingo Manager Notes Supporting Document Name Address Phone No Directive Type 09/05/2017 Not Specified Not Specified Not Specified None No specified 12:58:46 PM Patient does NOT have Living Will Directive Type Effective Date Bingo Manager Notes Supporting Document Name Address Phone No Directive Type 09/07/2013 2:25:19 Not Specified Not Specified Not Specified None No specified PM PT HAS NEITHER Directive Type Effective Date Bingo Manager Notes Supporting Document Name Address Phone No Directive Type 11/28/2012 9:27:07 Not Specified Not Specified Not Sp ecified None No specified PM Family History Family History Unknown Functional Status Code Functional Condition Code System Date Status Patient to schedule SNOMED CT 06/10/[address] 06/10/2020 Active Immunizations Vaccine Code Code System Vaccine Name Date Status 20 CVX diphtheria, tetanus toxoids 09/23/2013 Completed and acellular pertussis vaccine 88 CVX influenza virus vaccine, 09/24/2013 Com pleted NOS 109 CVX pneumococcal vaccine, NOS No t given (medical precaution) 88 CVX influenza virus vaccine, Not given (patient NOS objection) 141 CVX Influenza, seasonal, Not giv en (patient injectable objection) 33 CVX pneumococcal polysaccharide Not given vaccine (Contraindicate d/Does Not Qualify) 20 CVX diphtheria, tetanus toxoids 01/12/2018 Completed and acellular pertussis vaccine 03 CVX measles, mumps and rubella 01/16/2018 C ompleted virus vaccine Medical Equipment Implants Implanted Date Implant Site LEI 09/22/2003 heart valve heart Mental Status No data in the system Assessment and Plan Assessments No data in the systemPlan Of Treatment No data in the systemPending Tests No data in the system Hospital Discharge Instructions Discharge Instructions 2Discharge DiagnosisDental AbscessImportant Information Consult your physician or return to the Emergency Department immediately if worse, if not better as expected, or if any problems arise.Follow Up CareYes Important InformationPlease understand that you have received care only on an emergency basis. If your condition does not improve, you should call your personal physician for follow-up care. If you do not have a physician, you may call the referred physician listed.If you have questions about your care or these discharge instructions, you may call the Emergency Department. Please take your discharge paperwork with you to any follow-up appointments.Follow Up CarePatient To ScheduleFollow-Up With:Primary Care PhysicianActivity LevelAs tolerated, unrestrictedDietInstructions ProvidedPrescriptions Given Via:N/A Patient TeachingPatient education providedAntimicrobial Stewardship Patient EducationDisease ProcessPain ControlDietary Reason for Visit Reason for Visit Other
--- OUTSIDE RECORDS SUMMARY | 2020-08-02 10:27 | XMS REPORT | Continuity of Care Document ---
:1990 Author Organization [facility] Allergies and Intolerances Code Code Allergy Type Reaction Severity Start End Status System Substance Date Date 89152 RXNorm vancomycin Drug red man Unknown Activ e allergy syndrome (disorder) 7052 RXNorm morphine Drug Unknown Inactiv e allergy 013 (disorder) Medications RxNorm Medication Dose Route Instructions Start Date End Date Stat 788930 Benzocaine 100 15 mL mucous to affected Activ e MG/ML Mucous membrane mucosal area 4 Membrane Topical times per day as Solution needed. (as needed for mouth pain; swish and spit) Clindamycin Oral 450 mg oral orally 3 times Active per day (For 3 days) Problems Code Code System Problem Name Start Date End Date Status 277104900 SNOMED-CT Dental abscess 06/10/2020 Active 690153105 SNOMED-CT Gastroesophageal reflux disease 05/14/2019 Active 323298053 SNOMED-CT Acute infective bronchitis 09/03/2018 Active 60545782 SNOMED-CT Palpitations 06/03/2018 U Active 738917776 SNOMED-CT Laceration - injury 02/16/2018 U Compl eted repeat caesarean section, 01/12/2018 U Active bilateral tubal ligation 39wks , previous c/sx 2 01/12/2018 U Active , undesired fertility 38 wks , uterine 01/07/2018 U Active contractions, previous caesarean section 5725475 SNOMED-CT Otitis externa 10/31/2017 U Active 54609931 SNOMED-CT Otitis media 10/31/2017 U Active 25 weeks , febrile 10/14/2017 U Active illness,leucocytosis 6303986 SNOMED-CT Influenza 08/23/2017 U Active 806420516 SNOMED-CT Syncope 06/27/2017 U Active 06/27/2017 U Active 033036657 SNOMED-CT Laceration - injury 02/26/2017 U Activ e 12778246 SNOMED-CT Streptococcal sore throat 11/11/2016 U Active 42608284 SNOMED-CT Congenital heart disease U Active 832860844 SNOMED-CT Asthma U Active 28714489 SNOMED-CT Bronchitis U Active 00251181 SNOMED-CT Disorder of the peripheral U Active nervous system 729467287 SNOMED-CT Back problem U Active 21429753 SNOMED-CT Pulmonic valve stenosis U A ctive 30599228 SNOMED-CT Atrial septal defect U Acti ve Procedures Code Code System Procedure Date PULMONARY VALVE REPLACEMENT 2004 2006 LEFT NECK ABSCESS I &D 2009 Results No data in the system Social History Code Code System Social History Description Dates Observe d Observation Current Smoking Status Unknown if ever sm oked UNK AdministrativeGender Sex Assigned At Unknown Vital Signs No data in the system Goals Section No data in the system Health Concerns No data in the systemEncounter DiagnosisNo data in the system Advance Directives Patient does NOT have Living Will Directive Type Effective Date [employer] Notes Supporting Document Name Address Phone No Directive Type 05/14/2019 9:10:51 Not Specified Not Specified Not S pecified None No specified PM Patient does NOT have Living Will Directive Type Effective Date [employer] Notes Supporting Document Name Address Phone No Directive Type 01/07/2018 6:04:35 Not Specified Not Specified Not S pecified None No specified PM Patient does NOT have Living Will Directive Type Effective Date [employer] Notes Supporting Document Name Address Phone No Directive Type 09/05/2017 Not Specified Not Specified Not Specified None No specified 12:58:46 PM Patient does NOT have Living Will Directive Type Effective Date [employer] Notes Supporting Document Name Address Phone No Directive Type 09/07/2013 2:25:19 Not Specified Not Specified Not Specified None No specified PM PT HAS NEITHER Directive Type Effective Date [employer] Notes Supporting Document Name Address Phone No Directive Type 11/28/2012 9:27:07 Not Specified Not Specified Not Sp ecified None No specified PM Family History Family History Unknown Functional Status No data in the system Immunizations Vaccine Code Code System Vaccine Name [...] data in the system Hospital Discharge Instructions No data in the system Reason for Visit Reason for Visit OP TESTING
[2020-08-02] MEDS ORDERED: HALOPERIDOL LACT 5 MG/ML INJ ONE (10:47)
[2020-08-02 10:53] LABS: Absolute Lymphocytes (CBC) 1.8 K/uL (0.7-4.9); Basophils % 1.1 % (0-1.3); Lymphocytes % 18.8 % (15.3-44.8); MPV 9.1 fL (7.6-11.3); RBC Red Blood Cell Count 4.36 M/uL (3.86-4.86)
[2020-08-02 10:54] LABS: Urine Blood 1+ (NEG); Urine Glucose NEGATIVE (NEG); Urine Protein NEGATIVE (NEG); Urine Specific Gravity 1.025 (1.005-1.030); Urine pH 5.5 (5.0-7.0)
[2020-08-02 11:05] LABS: ALT/SGPT 20 U/L (12-78); AST/SGOT 16 U/L (15-37); Albumin 3.9 g/dL (3.4-5.0); Alkaline Phosphatase 62 U/L (45-117); BUN Blood Urea Nitrogen 11 mg/dL (7-18); Bicarbonate 25 mmol/L (21-32); Bilirubin Direct 0.1 mg/dL (0-0.2); Bilirubin Total 0.4 mg/dL (0.2-1.0); Glucose Level 97 mg/dL (74-106); Lipase 121 U/L (73-393); Potassium 4.3 mmol/L (3.5-5.1); Sodium Level 137 mmol/L (136-145)
--- NOTE | 2020-08-02 11:36 | ER ---
Nurse's Notes [facility] Name: Jacque Lainez Age: 30 yrs Sex: Female : 1990 Arrival Date: 08/02/2020 Time: 09:52 Bed 16 Private MD: Diagnosis: Vomiting Presentation: 08/02 10:02 Chief complaint: She is a daily marijuana smoker, has been inpatient at [facility] rehab for 1 week, c/o decreased appetite and N/V. Coronavirus screen: At this time, the client does not indicate any symptoms associated with coronavirus-19. Ebola Screen: No symptoms or risks identified at this time. Initial Sepsis Screen: Does the patient meet any 2 criteria? No. Patient's initial sepsis screen is negative. Does the patient have a suspected source of infection? No. Patient's initial sepsis screen is negative. Risk Assessment: Do you want to hurt yourself or someone else? Patient reports no desire to harm self or others. Onset of symptoms was July 26, 2020. 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 - Social history:: Smoking status: Patient denies any tobacco usage or history of. Screenin:38 Abuse screen: Denies threats or abuse. Nutritional screening: No deficits noted. tw2 Tuberculosis screening: No symptoms or risk factors identified. Fall Risk None identified. Assessment: 10:00 General: Appears in no apparent distress. slender, Behavior is calm, cooperative, tw2 appropriate for age. Pain: Denies pain. Neuro: Level of Consciousness is awake, alert, obeys commands, Oriented to person, place, time, situation. Cardiovascular: Heart tones S1 S2 Patient's skin is warm and dry. Respiratory: Airway is patent Respiratory effort is even, unlabored, Respiratory pattern is regular, symmetrical, Breath sounds are clear bilaterally. GI: Abdomen is flat, Bowel sounds present X 4 quads. Reports decreased appetite. : No signs and/or symptoms were reported regarding the genitourinary system. EENT: No signs and/or symptoms were reported regarding the EENT system. Derm: No signs and/or symptoms reported regarding the dermatologic system. Musculoskeletal: Capillary refill Range of motion: intact in all extremities. 11:00 Reassessment: Patient appears in no apparent distress at this time. No changes from tw2 previously documented assessment. Patient and/or family updated on plan of care and expected duration. Pain level reassessed. Patient is alert, oriented x 3, equal unlabored respirations, skin warm/dry/pink. 11:55 Reassessment: Patient appears in no apparent distress at this time. No changes from tw2 previously documented assessment. Patient and/or family updated on plan of care and expected duration. Pain level reassessed. Patient is alert, oriented x 3, equal unlabored respirations, skin warm/dry/pink. Vital Signs: 10:02 BP 128 / 96; Pulse 67; Resp 16; Temp 97.9; Pulse Ox 100% on R/A; Pain 0/10; hb 10:45 BP 137 / 73; Pulse 61; Resp 17; Pulse Ox 100% on R/A; tw2 11:00 BP 122 / 88; Pulse 64; Resp 18; Pulse Ox 100% on R/A; tw2 ED Course: 09:52 Patient arrived in ED. mr 09:56 Isaac Verduzco PA is PHCP. jmm 09:56 Edil Saez MD is Attending Physician. [facility] 10:00 Bed in low position. Call light in reach. Pulse ox on. NIBP on. tw2 10:04 Triage completed. hb 10:07 Arm band placed on. hb 10:30 Neeru Magaña, SHIV is Primary Nurse. tw2 10:35 Initial lab(s) drawn, by hi, sent to lab. Inserted saline lock: 20 gauge in left dh3 antecubital area, using aseptic technique. Blood collected. 10:47 Urine collected: clean catch specimen, clear. dh3 11:54 No provider procedures requiring assistance completed. IV discontinued, intact, tw2 bleeding controlled, No redness/swelling at site. Pressure dressing applied. Administered Medications: 10:42 Drug: HALdol 5 mg Route: IVP; Site: left antecubital; tw2 11:50 Follow up: Response: No adverse reaction tw2 Outcome: 11:35 Discharge ordered by MD. farias 11:54 Discharged to home ambulatory. tw2 11:54 Condition: stable 11:54 Discharge instructions given to patient, Instructed on discharge instructions, follow up and referral plans. Demonstrated understanding of instructions, follow-up care, medications, Prescriptions given X 2. 11:56 Patient left the ED. tw2 Signatures: Isaac Verduzco PA PA jmm Rivera, Mary mr Ara Rizo RN RN Neeru Magaña RN RN tw2 Natasha Ross 3
--- NOTE | 2020-08-02 11:36 | EDPHYS ---
Physician Documentation [facility] Name: Jacque Lainez Age: 30 yrs Sex: Female : 1990 Arrival Date: 08/02/2020 Time: 09:52 Bed 16 Private MD: SHARONDA Physician Edil Saez HPI: 08/02 10:21 This 30 yrs old Female presents to ER via Ambulatory with complaints of jmm Decreased Appetite. 10:21 The patient presents to the emergency department with nausea, vomiting. Onset: The jmm symptoms/episode began/occurred gradually, 1 week(s) ago. Possible causes: recent discontinuation of marijuana. The symptoms are aggravated by nothing. The symptoms are alleviated by nothing. Associated signs and symptoms:. This is a 30 year old female with a history of bipolar, GERD that presents to the ED with complaints fo vomiting which has been ongoing for the past year but worsened over the past week since discontinuation of marijuana 1 week ago. Patient denies abdominal pain. Patient is currently in a drug treatment program for marijuana abuse. . 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 - Social history:: Smoking status: Patient denies any tobacco usage or history of. ROS: 10:21 Constitutional: Negative for fever, chills, and weight loss, Cardiovascular: Negative jmm for chest pain, palpitations, and edema, Respiratory: Negative for shortness of breath, cough, wheezing, and pleuritic chest pain. 10:21 Abdomen/GI: Positive for vomiting. 10:21 All other systems are negative. Exam: 10:21 Constitutional: This is a well developed, well nourished patient who is awake, alert, jmm and in no acute distress. Head/Face: atraumatic. Eyes: EOMI, no conjunctival erythema appreciated ENT: Moist Mucus Membranes Neck: Trachea midline, Supple Chest/axilla: Normal chest wall appearance and motion. Cardiovascular: Regular rate and rhythm. No edema appreciated Respiratory: Normal respirations, no respiratory distress appreciated Abdomen/GI: Non distended, soft Back: Normal ROM Skin: General appearance color normal MS/ Extremity: Moves all extremities, no obvious deformities appreciated, no edema noted to the lower extremities Neuro: Awake and alert, normal gait Vital Signs: 10:02 BP 128 / 96; Pulse 67; Resp 16; Temp 97.9; Pulse Ox 100% on R/A; Pain 0/10; hb 10:45 BP 137 / 73; Pulse 61; Resp 17; Pulse Ox 100% on R/A; tw2 11:00 BP 122 / 88; Pulse 64; Resp 18; Pulse Ox 100% on R/A; tw2 MDM: 10:01 Patient medically screened. ivana 11:34 Data reviewed: vital signs, nurses notes. Counseling: I had a detailed discussion with [facility] the patient and/or guardian regarding: the historical points, exam findings, and any diagnostic results supporting the discharge/admit diagnosis, lab results, the need for outpatient follow up, to return to the emergency department if symptoms worsen or persist or if there are any questions or concerns that arise at home. ED course: Labs unremarkable. Abdomen is soft and non tender to palpation. I do not suspect an acute intrabdominal process. Patient is given strict return precautions. patient understood and agrees with the plan of care. . 08/02 10:18 Order name: Basic Metabolic Panel; Complete Time: 11:08 [facility] 08/02 10:18 Order name: CBC with Diff; Complete Time: 11: [facility] 08/02 10:18 Order name: Hepatic Function; Complete Time: 11: [facility] 08/02 10:18 Order name: Lipase; Complete Time: 11: [facility] 08/02 10:47 Order name: Urine Dipstick--Ancillary (enter results); Complete Time: 10:55 08/02 10:47 Order name: Urine --Ancillary (enter results); Complete Time: 10:55 08/02 10:18 Order name: IV Saline Lock; Complete Time: 10:44 [facility] 08/02 10:18 Order name: Labs collected and sent; Complete Time: 10:44 [facility] 08/02 10:18 Order name: Urine Dipstick-Ancillary (obtain specimen); Complete Time: 10:44 [facility] 08/02 10:18 Order name: Urine Test (obtain specimen); Complete Time: 10:44 [facility] Administered Medications: 10:42 Drug: HALdol 5 mg Route: IVP; Site: left antecubital; tw2 11:50 Follow up: Response: No adverse reaction tw2 Disposition: 08/03 05:29 Co-signature as Attending Physician, Edil Saez MD I agree with the assessment and [facility] plan of care. Disposition: 08/02/20 11:35 Discharged to Home. Impression: Vomiting. - Condition is Stable. - Discharge Instructions: Nausea and Vomiting, Adult. - Prescriptions for Carafate 1 gram Oral Tablet - take 1 tablet by ORAL route 4 times per day take on an empty stomach, beginning on waking and last dose at bedtime; 100 tablet. Zofran 4 mg Oral Tablet - take 1 tablet by ORAL route every 12 hours As needed; 20 tablet. - Medication Reconciliation Form, Thank You Letter, Antibiotic Education, Prescription Opioid Use form. - Follow up: Private Physician; When: 2 - 3 days; Reason: Recheck today's complaints, Continuance of care, Re-evaluation by your physician. Signatures: Dispatcher [employer] EDEdil Acosta MD MD cha Mickail, Joel, PA PA Ara Horn, SHIV RN Neeru Uribe RN RN tw2 Corrections: (The following items were deleted from the chart) 08/02 11:56 11:35 08/02/2020 11:35 Discharged to Home. Impression: Vomiting. Condition is Stable. tw2 Forms are Medication Reconciliation Form, Thank You Letter, Antibiotic Education, Prescription Opioid Use. Follow up: Private Physician; When: 2 - 3 days; Reason: Recheck today's complaints, Continuance of care, Re-evaluation by your physician. mihaela
[2020-08-02 13:34] VITALS: TEMP 97.9; O2SAT 100
[2020-08-02 13:36] VITALS: BP 122/88
== END 2020-08-02 11:56 | disposition home or self-care (01) ==
LOC: ER 09:42
DX: R11.10 Vomiting, unspecified (principal); F31.9 Bipolar disorder, unspecified; Z88.3 Allergy status to other anti-infective agents
CPT/HCPCS: 36415; 80048; 80076; 81003; 81025; 83690; 85025; 96374; 99284; J1630